=== PATIENT | female | born 1955 ===

== ENCOUNTER 2018-01-04 15:09 | Inpatient (IN) | payer MEDICARE, MEDICAID ==
[2018-01-04 15:10] VITALS: BMI 28.0
[2018-01-04 16:08] LABS: BASO # 0.1 K/uL (0.0-0.2); BASO % 1.1 % (0.0-2.0); EOS # 0.2 K/uL (0.0-0.7); EOS % 1.9 % (0.0-4.0); LYMPH # 2.1 K/uL (1.0-4.3); LYMPH % 24.7 % (20.0-40.0); MEAN CELL VOLUME 87.7 fL (81.0-99.0); MEAN CORPUSCULAR HEMOGLOBIN 30.1 pg (27.0-31.0); MEAN CORPUSCULAR HGB CONC 34.3 g/dL (33.0-37.0); MEAN PLATELET VOLUME 9.5 fL (7.2-11.7); MONO # 0.5 K/uL (0.0-0.8); MONO % 5.6 % (0.0-10.0); NEUT # 5.6 K/uL (1.8-7.0); NEUT % 66.7 % (50.0-75.0); NRBC % 0.1 % (0.0-2.0); RBC 3.98 Mil/uL (3.80-5.20); RED CELL DISTRIBUTION WIDTH 15.2 % (11.5-14.5); WHITE BLOOD COUNT 8.4 K/uL (4.8-10.8)
[2018-01-04 16:29] LABS: ALBUMIN 3.4 g/dL (3.5-5.0); ALT/SGPT 32 U/L (9-52); AST/SGOT 37 U/L (14-36); BLOOD UREA NITROGEN 30 mg/dL (7-17); CALCIUM 9.5 mg/dl (8.6-10.4); GFR AFRICAN-AMERICAN > 60; GFR NON-AFRICAN AMERICAN 51
--- NOTE | 2018-01-04 16:40 | C.PDOC ---
History Of Present Illness 62 year old female presents to the emergency department after being sent by Dr. Orlando for an infected diabetic foot ulcer. The ulcer is located on the ball of her right great toe, starting two months ago but has since been getting smaller. Suddenly it started hurting more. She was seen by Dr. Orlando in his office today. He opened the ulcer resulting in a lot of drainage. Patient denies fever or leg swelling. Time Seen by Provider: 01/04/18 15:28 Chief Complaint (Nursing): Lower Extremity Problem/Injury History Per: Patient History/Exam Limitations: no limitations Onset/Duration Of Symptoms: Other (two months) Current Symptoms Are (Timing): Still Present Past Medical History Reviewed: Historical Data, Nursing Documentation, Vital Signs Vital Signs: Last Vital Signs Temp 98.1 F 01/04/18 15:18 Pulse 93 H 01/04/18 15:18 Resp 18 01/04/18 15:18 BP 168/56 H 01/04/18 17:05 Pulse Ox 99 01/04/18 16:51 - Medical History PMH: Anemia, Anxiety, Asthma, Bronchitis, Colonic Polyps, COPD, Depression, Diabetes, Gastritis, Gall Bladder Disease, HTN, Hypercholesterolemia, Pancreatitis, Pneumonia Denies: Fractures, Osteoporosis, Chronic Kidney Disease Surgical History: Cholecystectomy, Endoscopy, Tonsillectomy - [facility] Procedures CENTRAL VENOUS CATHETER PLACEMENT WITH GUIDANCE (12/19/14) CLOSED ENDOSCOPIC BIOPSY OF LARGE INTESTINE (08/02/14) COLONOSCOPY (08/02/14) ENDOSC POLYPECTOMY OF LG INTEST (03/21/15) ESOPHAGOGASTRODUODENOSCOPY [EGD] W/CLOSED BIOPSY (03/21/15) TETANUS TOXOID ADMINIST (09/21/14) TOE AMPUTATION (01/16/15) Family History: States: No Known Family Hx - Social History Hx Tobacco Use: Yes Hx Alcohol Use: Yes Hx Substance Use: No - Immunization History Hx Tetanus Toxoid Vaccination: (unk) Hx Influenza Vaccination: No Hx Pneumococcal Vaccination: (unk) Review Of Systems Constitutional: Negative for: Fever, Chills, Sweats, Weakness Cardiovascular: Negative for: Edema Musculoskeletal: Positive for: Foot Pain. Negative for: Leg Pain Skin: Positive for: Other (ulcer with drainage) Physical Exam - Physical Exam Appears: Non-toxic, No Acute Distress Skin: Warm, Other (quarter-sized ulceration, open wound over the first metatarsal.) Head: Atraumatic, Normacephalic Eye(s): bilateral: Normal Inspection Extremity: No Swelling, Other (pain while walking, good sensation in the legs) Pulses: Left Dorsalis Pedis: Normal, Right Dorsalis Pedis: Normal Neurological/Psych: Oriented x3, Normal Speech, Normal Cognition ED Course And Treatment - Laboratory Results Result Diagrams: 01/04/18 16:02 01/04/18 16:02 Lab Interpretation: Abnormal (Glucose 418) O2 Sat by Pulse Oximetry: 99 (RA) Pulse Ox Interpretation: Normal Progress Note: Plan: CMP. CBC. Blood Culture. Wound Culture. XR Right Foot 3 Views - Physician Consult Information Time Consulting Physician Contacted: 17:13 Physician Contacted: Cary Bergeron Outcome Of Conversation: Patient to be admitted for treatment of a diabetic foot ulcer with infection. Disposition - Disposition Disposition: HOSPITALIZED Disposition Time: 17:15 Condition: STABLE - POA Present On Arrival: Poor Glycemic Control - Clinical Impression Clinical Impression: Diabetic foot infection - Scribe Statement The provider has reviewed the documentation as recorded by the Scribe (Isacc Lance) Provider Attestation: All medical record entries made by the Scribe were at my direction and personally dictated by me. I have reviewed the chart and agree that the record accurately reflects my personal performance of the history, physical exam, medical decision making, and the department course for this patient. I have also personally directed, reviewed, and agree with the discharge instructions and disposition.
[2018-01-04] MEDS ORDERED: Sodium Chloride 0.9% 1,000 ML IV ONE (16:45)
[2018-01-04] MEDS ORDERED: (Novolin R) Insulin Human Regular 100 units/ml vial IV ONE (16:46)
[2018-01-04] MEDS ORDERED: (Novolin R) Insulin Human Regular 100 units/ml vial ONE (16:50)
[2018-01-04] MEDS ORDERED: Sodium Chloride 0.9% 1,000 ML ONE (16:50)
[2018-01-04] MEDS ORDERED: Oxycodone/Acetaminophen 5/325 mg Tab ONE (16:57)
--- NOTE | 2018-01-04 17:04 | RAD ---
PROCEDURE: Right Foot Radiographs. HISTORY: diabetic foot ulcer, r/o osteo COMPARISON: None. FINDINGS: BONES: No acute fracture or destructive bony lesion identified. However, there are chronic deformities of the middle phalanx right 4th digit and proximal and distal phalanges of the right small digit. Technologists martinez the base of the great toe as the site of possible ulcer. No obvious pattern to suggest osteomyelitis throughout the right foot at this time. MRI is available for follow-up if clinically warranted. Degenerative changes seen throughout the interphalangeal joints as well as the tarsal metatarsal articulations diffusely. Local soft tissues appear thickened at the base of the great toe with flattened area and emphysema where it ulcer has apparently developed. JOINTS: As above. SOFT TISSUES: As above. OTHER FINDINGS: None. IMPRESSION: No acute fracture or definitive radiographic sign of osteomyelitis at this time. Deformities of the 4th and 5th digits are identified as discussed above on a chronic basis.
[2018-01-04 20:26] VITALS: RESP 20
[2018-01-04] MEDS: (Novolog) Insulin Aspart, Recombinant 100 u/ml 10 ml vial SC SCH (21:38)
[2018-01-04] MEDS: (Lantus) Insulin Glargine, Recombinant SC SCH (21:39)
[2018-01-04] MEDS: Vancomycin 750mg/NS 150 ml 150 ML IVPB SCH (22:14)
[2018-01-05] MEDS: Piperacill/Tazo 3.375gm in Dex 3.375 GM/50 ML BAG IVPB SCH ×4 (00:01→17:12)
[2018-01-05] MEDS: (Novolog) Insulin Aspart, Recombinant 100 u/ml 10 ml vial SC SCH ×4 (07:59→22:10)
[2018-01-05] MEDS: Enoxaparin 40 mg Syringe SC SCH (09:04)
[2018-01-05] MEDS: Vancomycin 750mg/NS 150 ml 150 ML IVPB SCH ×2 (11:21→22:06)
[2018-01-05] MEDS: (Lantus) Insulin Glargine, Recombinant SC SCH (22:11)
[2018-01-06] MEDS: Piperacill/Tazo 3.375gm in Dex 3.375 GM/50 ML BAG IVPB SCH ×4 (00:03→17:14)
--- NOTE | 2018-01-06 05:48 | HP ---
HISTORY OF PRESENT ILLNESS: The patient is 62 years old female with history of uncontrolled type 2 diabetes mellitus was referred to emergency room by research greenhouse supervisor due to infected ulcer on the right plantar aspect of the right foot. The patient had some drainage done in Dr. Shane Crandall's office, but due to the cellulitic reaction and continued infection, the patient was referred to emergency room for evaluation and subsequently admitted. The patient admits that she has pain. The patient denied any trauma. Other review of system is negative. ALLERGIES: POSITIVE FOR MORPHINE AND OXYCODONE. SOCIAL HISTORY Positive for smoking. No EtOH or substance abuse. FAMILY HISTORY Not contributory. PAST MEDICAL HISTORY: Uncontrolled type 2 diabetes mellitus, degenerative spine disease, hypertension, hypercholesterolemia, peripheral vascular disease, peripheral neuropathy. PHYSICAL EXAMINATION: GENERAL: The patient is in bed, not in any cardiopulmonary distress at the time of this examination. VITAL SIGNS: Blood pressure 139/61, temperature 97.6, respiratory rate 20 and pulse 60. HEENT: Pupils equal, reactive to light. Normal-appearing mucosa of the conjunctivae, oropharynx and nasal membrane mucosa. NECK: Supple. No JVD. No carotid bruit. No lymph node. No thyromegaly. CHEST AND LUNGS: Bilateral symmetrical expansion. Good air exchange. No rales, no rhonchi. CARDIOVASCULAR SYSTEM: PMI not localized. S1, S2. No additional sounds. ABDOMEN: Normoactive bowel sounds. No tenderness. No organomegaly. No masses. EXTREMITIES: No cyanosis, clubbing, no edema. In the right foot, the patient has acute on top of chronic ulcer of the right foot. REAL ESTATE DEVELOPER: Alert, awake, oriented x3. ____ any neurological deficits. ASSESSMENT: 1. Infected right foot ulcer. 2. Diabetic foot. 3. Type 2 diabetes mellitus, uncontrolled. 4. Peripheral vascular disease. 5. Hypertension. PLAN: Continue current antibiotics. Resume the patient's home medications. Continue current medications and IV antibiotics, both Zosyn and vancomycin. Will put in ID consult also. Cary Bergeron MD
[2018-01-06 07:21] LABS: BASO # 0.1 K/uL (0.0-0.2); EOS # 0.2 K/uL (0.0-0.7); EOS % 2.4 % (0.0-4.0); HEMOGLOBIN 12.8 g/dL (11.0-16.0); LYMPH # 2.1 K/uL (1.0-4.3); LYMPH % 27.1 % (20.0-40.0); MEAN CELL VOLUME 88.1 fL (81.0-99.0); MEAN CORPUSCULAR HEMOGLOBIN 29.8 pg (27.0-31.0); MEAN CORPUSCULAR HGB CONC 33.8 g/dL (33.0-37.0); MEAN PLATELET VOLUME 9.7 fL (7.2-11.7); MONO # 0.4 K/uL (0.0-0.8); NEUT # 4.9 K/uL (1.8-7.0); NEUT % 64.5 % (50.0-75.0); NRBC % 0.1 % (0.0-2.0); RBC 4.28 Mil/uL (3.80-5.20); RED CELL DISTRIBUTION WIDTH 14.9 % (11.5-14.5); WHITE BLOOD COUNT 7.6 K/uL (4.8-10.8)
--- NOTE | 2018-01-06 07:22 | CON ---
PROCEDURE DATE: 01/05/2018 At the request of Dr. Bergeron. This is a 62-year-old female, well known to me for a longstanding ulcer on the plantar aspect of the right foot. The patient was seen two days ago in the office and upon debridement, foul-smelling exudate appeared from the plantar aspect of the first metatarsophalangeal joint. No significant ascending cellulitis was noted; however due to chronic nature of this process and due to the fact that the patient is a well known uncontrolled diabetic and smoker, I suggested the patient be admitted for IV antibiotics. The patient is seen at bedside today, alert and orientated x3. Upon examination of the ulcer, again small amount of purulent exudate foul odor was noted. The wound was dressed and cleansed with peroxide, 4 x 4s, Berenice and tape. Outpatient imaging MRI did not suggest any evidence of osteomyelitis; however, I suspect that imaging maybe suspect. Suggest PICC line. Check sed rate for elevation and bone scan imaging may be helpful in determining whether or not there is infectious agent in the sesamoid apparatus of the first metatarsophalangeal joint over the head or base of the proximal phalanx. Cultures taken in ER are pending. The patient needs IV antibiotics and cessation of tobacco. Robin Arshad DPM
[2018-01-06 07:29] LABS: BLOOD UREA NITROGEN 27 mg/dL (7-17); CALCIUM 9.3 mg/dl (8.6-10.4); GFR AFRICAN-AMERICAN 51; GFR NON-AFRICAN AMERICAN 42
[2018-01-06] MEDS: (Novolog) Insulin Aspart, Recombinant 100 u/ml 10 ml vial SC SCH ×4 (08:35→22:31)
--- NOTE | 2018-01-06 10:10 | PN ---
DATE: She was seen at bedside, alert and oriented x3. No apparent distress. Right plantar first metatarsophalangeal joint ulcer is still producing drainage. The patient will continue with IV antibiotic therapy and imaging to determine osteomyelitis. The patient will require IV antibiotics via PICC line if it is determined that there is an osteomyelitic component in the right foot. Continued IVs for now and subacute or prolonged IV antibiotics. Robin Arshad DPM
[2018-01-06] MEDS: Enoxaparin 40 mg Syringe SC SCH (10:27)
--- NOTE | 2018-01-06 10:53 | CP.PCM.CON ---
History of Present Illness - History of Present Illness History of Present Illness: 62 yo female patient with PMHx of anxiety, Asthma, Bronchitis, Depression, Diabetes, Gastritis, Gall Bladder Disease, HTN, Hypercholesterolemia, Osteoporosis, Pneumoniawas seen at bedside this morning after request for podiatry consultation. Patient presents with superficial ulceration to plantar aspect of Right foot 1st MTPJ. Patient is well known to Dr. Darion LOPEZ who have been treating her with local wound debridement. Patient was sent today to hospital from Dr. Martínez office for cellulitis to right lower extremity. Patient states that he generated 1cc of pus from the wound to right foot today at his office. Patient denies of any N/V/F/C or SOB today Past Patient History - Infectious Disease Hx of Infectious Diseases: None - Past Medical History & Family History Past Medical History?: Yes - Past Social History Smoking Status: Heavy Smoker > 10 Cigarettes Daily - CARDIAC Hx Cardiac Disorders: Yes Hx Hypercholesterolemia: Yes Hx Hypertension: Yes - PULMONARY Hx Chronic Obstructive Pulmonary Disease (COPD): Yes - HEENT Hx HEENT Problems: Yes Hx Glaucoma: Yes (shanae eye, sx L eye) - RENAL Hx Chronic Kidney Disease: No - ENDOCRINE/METABOLIC Hx Diabetes Mellitus Type 2: Yes - HEMATOLOGICAL/ONCOLOGICAL Hx Blood Disorders: Yes Hx Anemia: Yes - INTEGUMENTARY Hx Dermatological Problems: No - MUSCULOSKELETAL/RHEUMATOLOGICAL Hx Musculoskeletal Disorders: No Hx Falls: No Hx Fractures: No Hx Osteoporosis: No - GASTROINTESTINAL Hx Gastrointestinal Disorders: Yes Hx Gall Bladder Disease: Yes Hx Gastritis: Yes Hx Pancreatitis: Yes - GENITOURINARY/GYNECOLOGICAL Hx Genitourinary Disorders: No - PSYCHIATRIC Hx Psychophysiologic Disorder: Yes Hx Anxiety: Yes Hx Depression: Yes Hx Substance Use: No - SURGICAL HISTORY Hx Surgeries: Yes Hx Cholecystectomy: Yes Hx Tonsillectomy: Yes - ANESTHESIA Hx Anesthesia: Yes Hx Anesthesia Reactions: No Hx Malignant Hyperthermia: No Meds Allergies/Adverse Reactions: Allergies Allergy/AdvReac Type Severity Reaction Status Date / Time morphine Allergy RASH Verified 01/04/18 15:26 oxycodone HCl [From Percocet] Allergy RASH Verified 01/04/18 15:26 - Medications Medications: Current Medications Buspirone HCl (Buspar) 15 mg PO BID [facility] Last Admin: 01/06/18 10:34 Dose: 15 mg Cyclobenzaprine HCl (Flexeril) 10 mg PO BID [facility] Last Admin: 01/06/18 10:27 Dose: 10 mg Enoxaparin Sodium (Lovenox) 40 mg SC DAILY [facility] Last Admin: 01/06/18 10:27 Dose: 40 mg Famotidine (Pepcid) 20 mg PO BID [facility] Last Admin: 01/06/18 10:27 Dose: 20 mg Vancomycin HCl (Vancocin 750mg/Ns 150 Ml) 150 mls @ 150 mls/hr IVPB Q12H [facility] PRN Reason: Protocol Stop: 01/09/18 22:01 Last Admin: 01/05/18 22:06 Dose: 150 mls/hr Piperacillin Sod/Tazobactam Sod (Zosyn 3.375 Gm Iv Premix) 3.375 gm in 50 mls @ 100 mls/hr IVPB Q6H [facility] PRN Reason: Protocol Last Admin: 01/06/18 06:04 Dose: 100 mls/hr Insulin Aspart (Novolog) 0 unit SC [facility] PRN Reason: Protocol Last Admin: 01/06/18 08:35 Dose: 2 unit Insulin Glargine (Lantus) 24 unit SC [facility] Last Admin: 01/05/18 22:11 Dose: Not Given Ketorolac Tromethamine (Toradol) 10 mg PO Q6 PRN PRN Reason: Pain, moderate (4-7) Last Admin: 01/05/18 22:05 Dose: 10 mg Lisinopril (Zestril) 10 mg PO DAILY [facility] Last Admin: 01/06/18 10:27 Dose: 10 mg [facility]) [facility] Last Admin: 01/06/18 10:27 Dose: 500 mg Rosuvastatin Calcium (Crestor) 10 mg PO [facility] Last Admin: 01/05/18 22:11 Dose: 10 mg Sertraline HCl (Zoloft) 100 mg PO DAILY [facility] Last Admin: 01/06/18 10:27 Dose: 100 mg Physical Exam - Constitutional Appears: Well, Non-toxic, No Acute Distress - Head Exam Head Exam: ATRAUMATIC - Extremities Exam Additional comments: Right lower extremity exam DERM: Superficial open ulceration to plantar aspect of right 1st MTPJ noted measuring 2cm x 2cm x 0.3cm. Wound base appears healing with granulation tissue. No purulent discharge noted. Mild erythema noted to right foot. No mal- odor noted. VASC: Non-palpable DP and PT noted bilaterally, MEETING/EVENT PLANNER less than 3 seconds to all digits NEURO: Gross sensation diminished ORTHO: No pain on palpation to right foot at the level of the ulceration. Decreased ROM noted to right ankle - Neurological Exam Neurological exam: Alert, Oriented x3 - Psychiatric Exam Psychiatric exam: Normal Affect, Normal Mood - Skin Skin Exam: Normal Color, Warm Results - Vital Signs Recent Vital Signs: Last Vital Signs Temp 98.3 F 01/06/18 07:58 Pulse 64 01/06/18 07:58 Resp 20 01/06/18 07:58 BP 170/72 H 01/06/18 07:58 Pulse Ox 96 01/06/18 07:58 - Labs Result Diagrams: 01/06/18 07:00 01/06/18 07:00 Labs: Laboratory Results - last 24 hr 01/05/18 01/05/18 01/05/18 11:00 16:38 21:28 WBC RBC Hgb Hct MCV MCH MCHC RDW Plt Count MPV Neut % (Auto) Lymph % (Auto) [place] % (Auto) Eos % (Auto) Baso % (Auto) Neut # (Auto) Lymph # (Auto) [place] # (Auto) Eos # (Auto) Baso # (Auto) ESR Sodium Potassium Chloride Carbon Dioxide Anion Gap BUN Creatinine Est GFR ( Amer) Est GFR (Non-Af Amer) POC Glucose (mg/dL) 220 H 177 H 108 Random Glucose Calcium C-Reactive Protein Vancomycin Trough 01/06/18 01/06/18 01/06/18 06:59 07:00 07:00 WBC 7.6 RBC 4.28 Hgb 12.8 Hct 37.7 MCV 88.1 MCH 29.8 MCHC 33.8 RDW 14.9 H Plt Count 243 MPV 9.7 Neut % (Auto) 64.5 Lymph % (Auto) 27.1 [place] % (Auto) 5.0 Eos % (Auto) 2.4 Baso % (Auto) 1.0 Neut # (Auto) 4.9 Lymph # (Auto) 2.1 [place] # (Auto) 0.4 Eos # (Auto) 0.2 Baso # (Auto) 0.1 ESR 97 H Sodium 144 Potassium 4.8 Chloride 106 Carbon Dioxide 29 Anion Gap 13 BUN 27 H Creatinine 1.3 H Est GFR ( Amer) 51 Est GFR (Non-Af Amer) 42 POC Glucose (mg/dL) 189 H Random Glucose 173 H Calcium 9.3 C-Reactive Protein < 5.00 Vancomycin Trough 01/06/18 09:59 WBC RBC Hgb Hct MCV MCH MCHC RDW Plt Count MPV Neut % (Auto) Lymph % (Auto) [place] % (Auto) Eos % (Auto) Baso % (Auto) Neut # (Auto) Lymph # (Auto) [place] # (Auto) Eos # (Auto) Baso # (Auto) ESR Sodium Potassium Chloride Carbon Dioxide Anion Gap BUN Creatinine Est GFR ( Amer) Est GFR (Non-Af Amer) POC Glucose (mg/dL) Random Glucose Calcium C-Reactive Protein Vancomycin Trough 17.6 H Assessment & Plan - Assessment and Plan (Free Text) Assessment: 62 yo female patient presents with right foot ulceration and cellulitis Plan: Patient was seen, evaluated at bedside discussed in detail with Dr. Orlando labs and vitals reviewed Rigth foot cleansed with saline, peroxide, Right foot dressed with Peroxide wet to dry DSD Patient to be weight bearing to heel as tolerated Xray reveals no osteomyelitis, no fracture No plan to take patient to [place] Continue treatment with IV Abx ESR 98 Podiatry will continue following inhouse
[2018-01-06] MEDS: Vancomycin 750mg/NS 150 ml 150 ML IVPB SCH (12:14)
--- NOTE | 2018-01-06 13:41 | CP.PCM.CON ---
History of Present Illness - History of Present Illness History of Present Illness: INFECTIOUS DISEASE CONSULT; HPI; 62-year-old female with past medical history off bronchial asthma, COPD, diabetes mellitus, gastritis, colon polyps, anemia, hypertension, hypercholesterolemia, pancreatitis and history of pneumonia, was admitted from the emergency room as she was sent by her senior net architect for cellulitis and draining 1 cc of pus from the wound right foot today at his office.. Patient states she had a callus developed 2 months ago and she is following with Dr. GARCIA, her senior net architect in the office with local wound repeat debridements weekly. Patient complains of pain on ambulation but denies any fever or chills. Patient denies any nausea vomiting, chest pain or shortness of breath.Today wound cultures reported positive for ESBL Escherichia coli/group B beta- hemolytic strep INFECTIOUS DISEASE CONSULT REQUESTED BY PMD FOR INFECTED DIABETIC FOOT ULCER. PATIENT WAS STARTED ON iv ZOSYN, AND iv VANCOMYCIN ON ADMISSION AFTER APPROPRIATE CULTURES. PATIENT GIVES HISTORY OF AN MRI DONE RECENTLY,BY HER HOT STRIP MILL INSPECTOR, REPORTS OF WHICH ARE UNKNOWN. PMH: Anemia, Anxiety, Asthma, Bronchitis, Colonic Polyps, COPD, Depression, Diabetes, Gastritis, Gall Bladder Disease, HTN, Hypercholesterolemia, Pancreatitis, Pneumonia Denies: Fractures, Osteoporosis, Chronic Kidney Disease Surgical History: Cholecystectomy, Endoscopy, Tonsillectomy - [facility] Procedures CENTRAL VENOUS CATHETER PLACEMENT WITH GUIDANCE (12/19/14) CLOSED ENDOSCOPIC BIOPSY OF LARGE INTESTINE (08/02/14) COLONOSCOPY (08/02/14) ENDOSC POLYPECTOMY OF LG INTEST (03/21/15) ESOPHAGOGASTRODUODENOSCOPY [EGD] W/CLOSED BIOPSY (03/21/15) TETANUS TOXOID ADMINIST (09/21/14) TOE AMPUTATION (01/16/15) Family History: States: No Known Family Hx - Social History Hx Tobacco Use: MORE THAN 10 CIGARETTES A DAY. Hx Alcohol Use: Yes Hx Substance Use: No - Immunization History Hx Tetanus Toxoid Vaccination: (unk) Hx Influenza Vaccination: No Hx Pneumococcal Vaccination: (unk) ALLERGY; MORPHINE, OXYCODONE HYDROCHLORIDE. Review of Systems - Constitutional Constitutional: absent: Chills, Fever - EENT Nose/Mouth/Throat: absent: Dry Mouth, Mouth Lesions - Cardiovascular Cardiovascular: absent: Chest Pain, Leg Edema - Respiratory Respiratory: absent: Cough, Hemoptysis - Gastrointestinal Gastrointestinal: absent: Abdominal Pain, Diarrhea, Nausea, Vomiting - Genitourinary Genitourinary: absent: Change in Urinary Stream, Dysuria, Hematuria, Urinary Hesitance - Neurological Neurological: absent: Dizziness, Frequent Falls, Headaches, Weakness - Psychiatric Psychiatric: absent: Mood Swings, Panic Attacks - Hematologic/Lymphatic Hematologic: As Per HPI. absent: Easy Bruising, Lymphadenopathy Past Patient History - Infectious Disease Hx of Infectious Diseases: None - Past Medical History & Family History Past Medical History?: Yes - Past Social History Smoking Status: Heavy Smoker > 10 Cigarettes Daily - CARDIAC Hx Cardiac Disorders: Yes Hx Hypercholesterolemia: Yes Hx Hypertension: Yes - PULMONARY Hx Chronic Obstructive Pulmonary Disease (COPD): Yes - HEENT Hx HEENT Problems: Yes Hx Glaucoma: Yes (shanae eye, sx L eye) - RENAL Hx Chronic Kidney Disease: No - ENDOCRINE/METABOLIC Hx Diabetes Mellitus Type 2: Yes - HEMATOLOGICAL/ONCOLOGICAL Hx Blood Disorders: Yes Hx Anemia: Yes - INTEGUMENTARY Hx Dermatological Problems: No - MUSCULOSKELETAL/RHEUMATOLOGICAL Hx Musculoskeletal Disorders: No Hx Falls: No Hx Fractures: No Hx Osteoporosis: No - GASTROINTESTINAL Hx Gastrointestinal Disorders: Yes Hx Gall Bladder Disease: Yes Hx Gastritis: Yes Hx Pancreatitis: Yes - GENITOURINARY/GYNECOLOGICAL Hx Genitourinary Disorders: No - PSYCHIATRIC Hx Psychophysiologic Disorder: Yes Hx Anxiety: Yes Hx Depression: Yes Hx Substance Use: No - SURGICAL HISTORY Hx Surgeries: Yes Hx Cholecystectomy: Yes Hx Tonsillectomy: Yes - ANESTHESIA Hx Anesthesia: Yes Hx Anesthesia Reactions: No Hx Malignant Hyperthermia: No Meds Allergies/Adverse Reactions: Allergies Allergy/AdvReac Type Severity Reaction Status Date / Time morphine Allergy RASH Verified 01/04/18 15:26 oxycodone HCl [From Percocet] Allergy RASH Verified 01/04/18 15:26 - Medications Medications: Current Medications Buspirone HCl (Buspar) 15 mg PO BID [facility] Last Admin: 01/06/18 10:34 Dose: 15 mg Cyclobenzaprine HCl (Flexeril) 10 mg PO BID [facility] Last Admin: 01/06/18 10:27 Dose: 10 mg Enoxaparin Sodium (Lovenox) 40 mg SC DAILY [facility] Last Admin: 01/06/18 10:27 Dose: 40 mg Famotidine (Pepcid) 20 mg PO BID [facility] Last Admin: 01/06/18 10:27 Dose: 20 mg Vancomycin HCl (Vancocin 750mg/Ns 150 Ml) 150 mls @ 150 mls/hr IVPB Q12H [facility] PRN Reason: Protocol Stop: 01/09/18 22:01 Last Admin: 01/06/18 12:14 Dose: 150 mls/hr Piperacillin Sod/Tazobactam Sod (Zosyn 3.375 Gm Iv Premix) 3.375 gm in 50 mls @ 100 mls/hr IVPB Q6H [facility] PRN Reason: Protocol Last Admin: 01/06/18 11:41 Dose: 100 mls/hr Insulin Aspart (Novolog) 0 unit SC [facility] PRN Reason: Protocol Last Admin: 01/06/18 12:31 Dose: 4 unit Insulin Glargine (Lantus) 24 unit SC [facility] Last Admin: 01/05/18 22:11 Dose: Not Given Ketorolac Tromethamine (Toradol) 10 mg PO Q6 PRN PRN Reason: Pain, moderate (4-7) Last Admin: 01/05/18 22:05 Dose: 10 mg Lisinopril (Zestril) 10 mg PO DAILY [facility] Last Admin: 01/06/18 10:27 Dose: 10 mg Metformin [facility] ([facility]) [facility] Last Admin: 01/06/18 10:27 Dose: 500 mg Rosuvastatin Calcium (Crestor) 10 mg PO [facility] Last Admin: 01/05/18 22:11 Dose: 10 mg Sertraline HCl (Zoloft) 100 mg PO DAILY [facility] Last Admin: 01/06/18 10:27 Dose: 100 mg Physical Exam - Constitutional Appears: No Acute Distress - Head Exam Head Exam: NORMAL INSPECTION - Eye Exam Eye Exam: EOMI, PERRL - ENT Exam ENT Exam: Normal Oropharynx - Neck Exam Neck exam: Positive for: Normal Inspection - Respiratory Exam Respiratory Exam: Clear to Auscultation Bilateral - Cardiovascular Exam Cardiovascular Exam: REGULAR RHYTHM, +S1 - GI/Abdominal Exam GI & Abdominal Exam: Normal Bowel Sounds, Soft. absent: Tenderness - Extremities Exam Extremities exam: Positive for: pedal edema Additional comments: Superficial open ulceration to plantar aspect of right 1st MTPJ noted measuring 2cm x 2cm x 0.3cm. Wound base appears healing with granulation tissue. No purulent discharge noted. Mild erythema noted to right foot. pedal pulses nonpalpable. Foot appears to be warm. - Neurological Exam Neurological exam: Alert, CN II-XII Intact, Oriented x3, Reflexes Normal - Psychiatric Exam Psychiatric exam: Normal Mood - Skin Skin Exam: Normal Color, Warm Results - Vital Signs Recent Vital Signs: Last Vital Signs Temp 98.3 F 01/06/18 07:58 Pulse 64 01/06/18 07:58 Resp 20 01/06/18 07:58 BP 170/72 H 01/06/18 07:58 Pulse Ox 96 01/06/18 07:58 - Labs Result Diagrams: 01/06/18 07:00 01/06/18 07:00 Labs: Laboratory Results - last 24 hr 01/05/18 01/05/18 01/06/18 16:38 21:28 06:59 WBC RBC Hgb Hct MCV MCH MCHC RDW Plt Count MPV Neut % (Auto) Lymph % (Auto) [place] % (Auto) Eos % (Auto) Baso % (Auto) Neut # (Auto) Lymph # (Auto) [place] # (Auto) Eos # (Auto) Baso # (Auto) ESR Sodium Potassium Chloride Carbon Dioxide Anion Gap BUN Creatinine Est GFR ( Amer) Est GFR (Non-Af Amer) POC Glucose (mg/dL) 177 H 108 189 H Random Glucose Calcium C-Reactive Protein Vancomycin Trough 01/06/18 01/06/18 01/06/18 07:00 07:00 09:59 WBC 7.6 RBC 4.28 Hgb 12.8 Hct 37.7 MCV 88.1 MCH 29.8 MCHC 33.8 RDW 14.9 H Plt Count 243 MPV 9.7 Neut % (Auto) 64.5 Lymph % (Auto) 27.1 [place] % (Auto) 5.0 Eos % (Auto) 2.4 Baso % (Auto) 1.0 Neut # (Auto) 4.9 Lymph # (Auto) 2.1 [place] # (Auto) 0.4 Eos # (Auto) 0.2 Baso # (Auto) 0.1 ESR 97 H Sodium 144 Potassium 4.8 Chloride 106 Carbon Dioxide 29 Anion Gap 13 BUN 27 H Creatinine 1.3 H Est GFR ( Amer) 51 Est GFR (Non-Af Amer) 42 POC Glucose (mg/dL) Random Glucose 173 H Calcium 9.3 C-Reactive Protein < 5.00 Vancomycin Trough 17.6 H 01/06/18 11:14 WBC RBC Hgb Hct MCV MCH MCHC RDW Plt Count MPV Neut % (Auto) Lymph % (Auto) [place] % (Auto) Eos % (Auto) Baso % (Auto) Neut # (Auto) Lymph # (Auto) [place] # (Auto) Eos # (Auto) Baso # (Auto) ESR Sodium Potassium Chloride Carbon Dioxide Anion Gap BUN Creatinine Est GFR ( Amer) Est GFR (Non-Af Amer) POC Glucose (mg/dL) 213 H Random Glucose Calcium C-Reactive Protein Vancomycin Trough Assessment & Plan (1) Diabetic foot infection Status: Acute (2) Cellulitis and abscess of digit Assessment and Plan: s/p incision and drainage WOUND CULTURE +VE ESBL E.COLI /GRP B BETA.HAEMOLYTIC STREPT S- MERREM/ZOSYN DC IV ZOSYN. START IV MERREM 500MG IVPB Q8HRLY 01/06/18 CONTINUE IV VANCOMYCIN, DECREASE DOSE TO 1350 MG IVPB QD DAILY STARTING AM F/U VANCO TROUGH LEVEL PRIOR TO 4TH DOSE CONTACT ISOLATION. WOUNG CARE PER PODIATRY. F/U BONE SCAN/MRI REPORTRT FOOT DONE OPD. Status: Acute (3) Diabetes Assessment and Plan: F/U HGB A1C Status: Acute
--- NOTE | 2018-01-06 13:51 | NM ---
PROCEDURE: Three-phase bone scan HISTORY: RT FOOT PLANTER ULCER R/O Osteomyelitis COMPARISON: 12/21/2014 three-phase bone scan. 01/04/2018 plain film radiographs right foot TECHNIQUE: Following administration of 23.4 miCu of Tc MDP three-phase bone scan attention plantar aspect right foot. FINDINGS: Flow component: Normal and symmetrical flow to the ankles and feet. Blood pool component: Accumulation of radionuclide in the soft tissues of the right foot at the level of the plantar ulcer. Delayed images at 3:00: Focal uptake left ankle. Focal uptake proximal left pretibial region. This appears just below the tibial plateau Other findings: Degenerative changes both knees. IMPRESSION: Findings consistent with cellulitis plantar aspect right foot. No compelling evidence for acute osteomyelitis. Additional benign and/or incidental findings described above.
[2018-01-06] MEDS: Sodium Chloride 0.9% 1,000 ML IV SCH (21:02)
--- NOTE | 2018-01-06 21:50 | PN ---
DATE: 01/06/2018 SUBJECTIVE: The patient is seen today 01/06/2018. She is not in any cardiopulmonary distress. The patient has surgical dressing on the right foot. Wound culture grew both E-coli ESBL positive and beta hemolytic streptococcus. Both are sensitive to Zosyn. ID was consulted. PHYSICAL EXAMINATION: VITAL SIGNS: Blood pressure 150/66, temperature 98.5, respiratory rate 20 and pulse 66. HEENT: Pupils equal, reactive to light. Normal-appearing mucosa of the conjunctivae, oropharynx and nasal membrane mucosa. NECK: Supple. No JVD. No carotid bruit. No lymph node. No thyromegaly. CHEST AND LUNGS: Bilateral symmetrical expansion, good air exchange. No rales, no rhonchi. CARDIOVASCULAR SYSTEM: PMI not localized. S1, S2. No additional sounds. ABDOMEN: Normoactive bowel sounds. No tenderness. No organomegaly. No masses. EXTREMITIES: No cyanosis, no clubbing, no edema. OVERLOCK COLLAR SETTER: Alert, awake, oriented x2. No neurological deficit could be appreciated. ASSESSMENT Infected right foot ulcer, diabetic foot, type 2 diabetes mellitus, diabetic neuropathy, hypertension. PLAN: ID consult and follow recommendations. Continue current IV antibiotics, local wound management as per Podiatry. Discussed the patient's condition with the patient's brother as well as the patient at the bedside. Cary Bergeron MD
[2018-01-06] MEDS: (Lantus) Insulin Glargine, Recombinant SC SCH (22:30)
[2018-01-07] MEDS: Meropenem 500 MG in Sodium Chloride 0.9% 100 ML IVPB SCH ×3 (05:07→21:40)
[2018-01-07] MEDS: (Novolog) Insulin Aspart, Recombinant 100 u/ml 10 ml vial SC SCH ×4 (08:21→21:49)
[2018-01-07] MEDS: Sodium Chloride 0.9% 1,000 ML IV SCH ×2 (08:35→22:00)
[2018-01-07 09:00] LABS: ALB/GLOB RATIO 0.9 (1.0-2.1); ALBUMIN 3.1 g/dL (3.5-5.0); ALT/SGPT 34 U/L (9-52); AST/SGOT 45 U/L (14-36); BLOOD UREA NITROGEN 17 mg/dL (7-17); GFR AFRICAN-AMERICAN > 60; GFR NON-AFRICAN AMERICAN 57
--- NOTE | 2018-01-07 09:25 | CP.PCM.PN ---
Subjective - Date & Time of Evaluation Date of Evaluation: 01/07/18 Time of Evaluation: 09:22 - Subjective Subjective: Podiatry Progress note: Dr. Orlando 62 year old female with extensive PMHx was seen and evaluated at bedside for superficial ulceration to plantar aspect of right foot. Patient is AAOx3 and is in NAD. Appears to be resting comfortably in her bed. Denies of any acute overnight events. Denies of any pain today. Denies F/N/V/C/SOB/CP/headache. No new pedal complains Objective - Vital Signs/Intake and Output Vital Signs (last 24 hours): Temp Pulse Resp BP Pulse Ox 97.8 F 86 20 156/71 H 96 01/07/18 08:23 01/07/18 08:23 01/07/18 08:23 01/07/18 08:23 01/07/18 08:23 Intake and Output: 01/07/18 01/07/18 06:59 18:59 Intake Total 650 Balance 650 - Medications Medications: Current Medications Buspirone HCl (Buspar) 15 mg PO BID [facility] Last Admin: 01/06/18 17:24 Dose: 15 mg Cyclobenzaprine HCl (Flexeril) 10 mg PO BID [facility] Last Admin: 01/06/18 17:12 Dose: 10 mg Enoxaparin Sodium (Lovenox) 40 mg SC DAILY [facility] Last Admin: 01/06/18 10:27 Dose: 40 mg Famotidine (Pepcid) 20 mg PO BID [facility] Last Admin: 01/06/18 17:13 Dose: 20 mg Sodium Chloride (Sodium Chloride 0.9%) 1,000 mls @ 100 mls/hr IV .Q10H [facility] Last Admin: 01/07/18 08:35 Dose: 100 mls/hr Meropenem 500 mg/ Sodium (Chloride) 100 mls @ 100 mls/hr IVPB Q8 [facility] PRN Reason: Protocol Last Admin: 01/07/18 05:07 Dose: 100 mls/hr Vancomycin HCl 1.25 gm/ Sodium (Chloride) 250 mls @ 166.7 mls/hr IVPB Q24H [facility] PRN Reason: Protocol Insulin Aspart (Novolog) 0 unit SC [facility] PRN Reason: Protocol Last Admin: 01/07/18 08:21 Dose: 4 unit Insulin Glargine (Lantus) 24 unit SC [facility] Last Admin: 01/06/18 22:30 Dose: 24 unit Lisinopril (Zestril) 10 mg PO DAILY [facility] Last Admin: 01/06/18 10:27 Dose: 10 mg [facility] ([facility]) [address] [facility] Last Admin: 01/07/18 08:21 Dose: 500 mg Rosuvastatin Calcium (Crestor) 10 mg PO [facility] Last Admin: 01/06/18 22:30 Dose: 10 mg Sertraline HCl (Zoloft) 100 mg PO DAILY [facility] Last Admin: 01/06/18 10:27 Dose: 100 mg - Labs Labs: 01/06/18 07:00 01/07/18 08:07 - Constitutional Appears: Well, Non-toxic, No Acute Distress - Extremities Exam Additional comments: Right lower extremity exam DERM: Superficial open ulceration to plantar aspect of right 1st MTPJ noted measuring 2cm x 2cm x 0.3cm. Wound base appears healing with granulation tissue. No purulent discharge noted. Mild erythema noted to right foot. No mal- odor noted. VASC: Non-palpable DP and PT noted bilaterally, ENGRAVER OPTICAL FRAMES less than 3 seconds to all digits NEURO: Gross sensation diminished ORTHO: No pain on palpation to right foot at the level of the ulceration. Decreased ROM noted to right ankle - Neurological Exam Neurological Exam: Alert, Awake, Oriented x3 - Psychiatric Exam Psychiatric exam: Normal Affect, Normal Mood Assessment and Plan - Assessment and Plan (Free Text) Assessment: 62 yo female patient presents with right foot ulceration and cellulitis Plan: Patient was seen, evaluated at bedside Discussed in detail with Dr. Orlando labs and vitals reviewed Rigth foot cleansed with saline, peroxide, Right foot dressed with Peroxide wet to dry DSD Patient to be weight bearing to heel as tolerated Xray reveals no osteomyelitis, no fracture No plan to take patient to [place] Continue treatment with IV Abx Podiatry will continue following inhouse
[2018-01-07] MEDS: Enoxaparin 40 mg Syringe SC SCH (09:36)
[2018-01-07] MEDS: (Lantus) Insulin Glargine, Recombinant SC SCH (21:39)
--- NOTE | 2018-01-07 23:58 | CP.PCM.PN ---
Subjective - Date & Time of Evaluation Date of Evaluation: 01/07/18 Time of Evaluation: 23:58 - Subjective Subjective: CHIEF COMPLAINTS TODAY : AFEBRILE, OFFERS NO NEW COMPLAINTS seen by podiatry and noted ROS. HEENT : N. Resp : No cough, wheezing ,pleuritic CP ,or hemoptysis Cardio : No anginal CP, PND, orthopnea, palpitation GI : No abd.pain, n/v ,diarrhea or GI bleeding . REHABILITATION AIDE : No headache, vertigo, focal deficit. Musculoskel : No joint swelling , Derm : No rash Psych : Normal affect. Ext : No swelling ,calf pain, superficial ulceration to plantar aspect of right foot PE. Pt. is alert awake in no distress. V.S As noted in the chart Head ,ear nose,throat and eyes : Normal. Neck : Supple with normal carotids. Lungs: Clear air entry. Heart : S1 & S2 normal with S4. No murmur. Abd : Soft non tender with normal bowel sounds. Neuro : Moves all ext. with no localized deficit. Ext : mild edema rt foot, with intact pulses.Non tender calves superficial ulceration to plantar aspect of right foot Derm : No rashes or decubitus ulcer. LABS/RADIOLOGY: creatinine 1.0/BUN 17 improving. BONE SCAN-CONSISTENT WITH CELLULITIS PLANTAR ASPECT NO EVIDENCE OF OSTEOMYELITIS. Objective - Vital Signs/Intake and Output Vital Signs (last 24 hours): Temp Pulse Resp BP Pulse Ox 98.9 F 73 20 166/74 H 100 01/07/18 15:00 01/07/18 15:00 01/07/18 15:00 01/07/18 15:00 01/07/18 15:00 Intake and Output: 01/07/18 01/08/18 18:59 06:59 Intake Total 1300 1160 Balance 1300 1160 - Medications Medications: Current Medications Buspirone HCl (Buspar) 15 mg PO BID [facility] Last Admin: 01/07/18 17:18 Dose: 15 mg Cyclobenzaprine HCl (Flexeril) 10 mg PO BID [facility] Last Admin: 01/07/18 17:19 Dose: 10 mg Enoxaparin Sodium (Lovenox) 40 mg SC DAILY [facility] Last Admin: 01/07/18 09:36 Dose: Not Given Famotidine (Pepcid) 20 mg PO BID [facility] Last Admin: 01/07/18 17:18 Dose: 20 mg Sodium Chloride (Sodium Chloride 0.9%) 1,000 mls @ 100 mls/hr IV .Q10H [facility] Last Admin: 01/07/18 22:00 Dose: Not Given Meropenem 500 mg/ Sodium (Chloride) 100 mls @ 100 mls/hr IVPB Q8 [facility] PRN Reason: Protocol Last Admin: 01/07/18 21:40 Dose: 100 mls/hr Vancomycin HCl 1.25 gm/ Sodium (Chloride) 250 mls @ 166.7 mls/hr IVPB Q24H [facility] PRN Reason: Protocol Last Admin: 01/07/18 10:22 Dose: 166.7 mls/hr Insulin Aspart (Novolog) 0 unit SC ACHS [facility] PRN Reason: Protocol Last Admin: 01/07/18 21:49 Dose: Not Given Insulin Glargine (Lantus) 24 unit SC HS [facility] Last Admin: 01/07/18 21:39 Dose: 24 unit Lisinopril (Zestril) 10 mg PO DAILY [facility] Last Admin: 01/07/18 09:31 Dose: 10 mg Metformin HCl (Glucophage) 500 mg PO BIDPC [facility] Last Admin: 01/07/18 17:18 Dose: 500 mg Rosuvastatin Calcium (Crestor) 10 mg PO HS [facility] Last Admin: 01/07/18 21:39 Dose: 10 mg Sertraline HCl (Zoloft) 100 mg PO DAILY [facility] Last Admin: 01/07/18 09:31 Dose: 100 mg - Labs Labs: 01/06/18 07:00 01/07/18 08:07 Assessment and Plan (1) Diabetic foot infection Status: Acute (2) Cellulitis and abscess of digit Assessment & Plan: WOUND CULTURE +VE ESBL E.COLI /GRP B BETA.HAEMOLYTIC STREPT S- MERREM/ZOSYN on IV MERREM 500MG IVPB Q8HRLY 01/06/18 CONTINUE IV VANCOMYCIN, DECREASE DOSE TO 1250 MG IVPB QD DAILY STARTING 01/07/18 F/U VANCO TROUGH LEVEL PRIOR TO 4TH DOSE F/U RENAL FUNCTIONS CLOSELY. CONTACT ISOLATION. WOUNG CARE PER PODIATRY. F/U BONE SCAN/MRI REPORTRT FOOT DONE OPD. Status: Acute Status: Acute (3) Diabetes Status: Acute
--- NOTE | 2018-01-08 00:18 | PN ---
DATE: 01/07/2018 SUBJECTIVE: The patient is seen today 01/07/2018. She is not in any cardiopulmonary distress, currently on IV antibiotics treating the right foot ulcer. PHYSICAL EXAMINATION: VITAL SIGNS: Blood pressure is 166/74, temperature 98.9, respiratory rate 20 and pulse 70. HEENT: Pupils equal, reactive to light. Normal-appearing mucosa of the conjunctivae, oropharynx and nasal membrane mucosa. NECK: Supple. No JVD. No carotid bruit. No lymph node. No thyromegaly. CHEST AND LUNGS: Bilateral symmetrical expansion. Good air exchange. No rales, no rhonchi. CARDIOVASCULAR SYSTEM: PMI not localized. S1, S2. No additional sounds. ABDOMEN: Normoactive bowel sounds. No tenderness. No organomegaly. No masses. EXTREMITIES: No cyanosis, no clubbing, no edema. Right foot ulcer. RETORT ENGINEER: Alert, awake, oriented x3. No neurological deficit could be appreciated. ASSESSMENT: 1. Infected right foot ulcer with polymicrobial infection. 2. Type 2 diabetes mellitus, uncontrolled. 3. Hypertension. 4. Diabetic neuropathy. PLAN: Continue current medications and follow ID recommendations and follow BUN and creatinine and vancomycin trough. Cary Bergeron MD
[2018-01-08] MEDS: Sodium Chloride 0.9% 1,000 ML IV SCH ×3 (02:30→19:34)
[2018-01-08] MEDS: Meropenem 500 MG in Sodium Chloride 0.9% 100 ML IVPB SCH ×3 (05:51→21:47)
[2018-01-08] MEDS: (Novolog) Insulin Aspart, Recombinant 100 u/ml 10 ml vial SC SCH ×3 (08:25→17:22)
[2018-01-08] MEDS: Enoxaparin 40 mg Syringe SC SCH ×2 (10:04→11:17)
--- NOTE | 2018-01-08 14:57 | CP.PCM.PN ---
Subjective - Date & Time of Evaluation Date of Evaluation: 01/08/18 Time of Evaluation: 14:55 - Subjective Subjective: Podiatry Progress note: Dr. Orlando 62 year old female with extensive PMHx was seen and evaluated at bedside for superficial ulceration to plantar aspect of right foot. Patient is AAOx3 and is in NAD. Appears to be resting comfortably in her bed. Denies of any pain today. Denies of any acute overnight events. Denies F/N/V/C/SOB/CP/headache. No new pedal complains Objective - Vital Signs/Intake and Output Vital Signs (last 24 hours): Temp Pulse Resp BP Pulse Ox 98.5 F 75 20 151/83 H 100 01/08/18 08:18 01/08/18 08:18 01/08/18 08:18 01/08/18 08:18 01/08/18 08:18 Intake and Output: 01/08/18 01/08/18 06:59 18:59 Intake Total 2160 1300 Balance 2160 1300 - Medications Medications: Current Medications Acetaminophen (Tylenol 325mg Tab) 650 mg PO Q6H PRN PRN Reason: Pain, moderate (4-7) Amlodipine Besylate (Norvasc) 5 mg PO DAILY [facility] Last Admin: 01/08/18 10:04 Dose: 5 mg Buspirone HCl (Buspar) 15 mg PO BID [facility] Last Admin: 01/08/18 10:04 Dose: 15 mg Cyclobenzaprine HCl (Flexeril) 10 mg PO BID [facility] Last Admin: 01/08/18 10:04 Dose: 10 mg Enoxaparin Sodium (Lovenox) 40 mg SC DAILY [facility] Last Admin: 01/08/18 11:17 Dose: Not Given Famotidine (Pepcid) 20 mg PO BID [facility] Last Admin: 01/08/18 10:04 Dose: 20 mg Sodium Chloride (Sodium Chloride 0.9%) 1,000 mls @ 100 mls/hr IV .Q10H [facility] Last Admin: 01/08/18 05:50 Dose: 100 mls/hr Meropenem 500 mg/ Sodium (Chloride) 100 mls @ 100 mls/hr IVPB Q8 [facility] PRN Reason: Protocol Last Admin: 01/08/18 14:16 Dose: 100 mls/hr Vancomycin HCl 1.25 gm/ Sodium (Chloride) 250 mls @ 166.7 mls/hr IVPB Q24H [facility] PRN Reason: Protocol Last Admin: 01/08/18 11:16 Dose: 166.7 mls/hr Insulin Aspart (Novolog) 0 unit SC ACHS [facility] PRN Reason: Protocol Last Admin: 01/08/18 11:45 Dose: Not Given Insulin Glargine (Lantus) 24 unit SC HS [facility] Last Admin: 01/07/18 21:39 Dose: 24 unit Insulin Glargine (Lantus) 12 unit SC ACB [facility] Lisinopril (Zestril) 10 mg PO DAILY [facility] Last Admin: 01/08/18 10:04 Dose: 10 mg Metformin HCl (Glucophage) 500 mg PO BIDPC [facility] Last Admin: 01/08/18 08:25 Dose: 500 mg Rosuvastatin Calcium (Crestor) 10 mg PO [facility] Last Admin: 01/07/18 21:39 Dose: 10 mg Sertraline HCl (Zoloft) 100 mg PO DAILY [facility] Last Admin: 01/08/18 10:03 Dose: 100 mg - Labs Labs: 01/06/18 07:00 01/07/18 08:07 - Constitutional Appears: Well, Non-toxic, No Acute Distress - Extremities Exam Additional comments: Right lower extremity exam DERM: Superficial open ulceration to plantar aspect of right 1st MTPJ noted measuring 2cm x 2cm x 0.3cm. Wound base appears healing with granulation tissue. No purulent discharge noted. Mild erythema noted to right foot. No mal- odor noted. VASC: Non-palpable DP and PT noted bilaterally, PHYSICIAN PRACTICE ADMINISTRATOR less than 3 seconds to all digits NEURO: Gross sensation diminished ORTHO: No pain on palpation to right foot at the level of the ulceration. Decreased ROM noted to right ankle - Neurological Exam Neurological Exam: Alert, Awake, Oriented x3 - Psychiatric Exam Psychiatric exam: Normal Affect, Normal Mood Assessment and Plan - Assessment and Plan (Free Text) Assessment: 62 yo female patient presents with right foot ulceration and cellulitis Plan: Patient was seen, evaluated at bedside Discussed in detail with Dr. Orlando labs and vitals reviewed Rigth foot cleansed with saline, peroxide, Right foot dressed with Peroxide wet to dry DSD Patient to be weight bearing to heel as tolerated Xray reveals no osteomyelitis, no fracture No plan to take patient to [place] Continue treatment with IV Abx Podiatry will continue following inhouse
[2018-01-08] MEDS: (Lantus) Insulin Glargine, Recombinant SC SCH (21:47)
--- NOTE | 2018-01-09 00:47 | PN ---
DATE: 01/08/2018 SUBJECTIVE: The patient is seen today, 01/08/2018. She is not in any cardiopulmonary distress. The patient is on IV antibiotics, treating infected right foot ulcer. OBJECTIVE: VITAL SIGNS: Blood pressure 184/77, temperature 98.3, respiratory rate 20, and pulse 97. HEENT: Pupils equal and reactive to light. Normal-appearing mucosa of the conjunctivae, oropharynx, and nasal membrane mucosa. NECK: Supple. No JVD. No carotid bruit. No lymph node. No thyromegaly. CHEST AND LUNGS: Bilateral symmetrical expansion. Good air exchange. No rales, no rhonchi. CARDIOVASCULAR SYSTEM: PMI not localized. S1, S2. No additional sounds. ABDOMEN: Normoactive bowel sounds. No tenderness. No organomegaly. No masses. EXTREMITIES: No cyanosis, no clubbing, no edema. CHEESEMAKER: Alert, awake, oriented x2. No neurological deficit could be appreciated. ASSESSMENT: 1. Infected right foot ulcer. 2. Diabetic foot. 3. Type 2 diabetes mellitus, uncontrolled. 4. Hypertension, uncontrolled. PLAN: We will increase the lisinopril to 10 mg twice a day. We added amlodipine 5 mg. Continue current IV antibiotics and follow ID recommendations. Cary Bergeron MD
[2018-01-09] MEDS: Meropenem 500 MG in Sodium Chloride 0.9% 100 ML IVPB SCH ×2 (05:46→14:25)
[2018-01-09] MEDS ORDERED: (Lantus) Insulin Glargine, Recombinant SC SCH (07:30)
[2018-01-09] MEDS: (Novolog) Insulin Aspart, Recombinant 100 u/ml 10 ml vial SC SCH ×2 (08:01→12:25)
--- NOTE | 2018-01-09 11:58 | CP.PCM.PN ---
Subjective - Date & Time of Evaluation Date of Evaluation: 01/09/18 Time of Evaluation: 11:58 - Subjective Subjective: CHIEF COMPLAINTS TODAY : AFEBRILE, OFFERS NO NEW COMPLAINTS mri rt .foot reported also -ve for OSTEOMYLITIS ROS. HEENT : N. Resp : No cough, wheezing ,pleuritic CP ,or hemoptysis Cardio : No anginal CP, PND, orthopnea, palpitation GI : No abd.pain, n/v ,diarrhea or GI bleeding . PET RESORT CONCIERGE : No headache, vertigo, focal deficit. Musculoskel : No joint swelling , Derm : No rash Psych : Normal affect. Ext : No swelling ,calf pain, superficial ulceration to plantar aspect of right foot PE. Pt. is alert awake in no distress. V.S As noted in the chart Head ,ear nose,throat and eyes : Normal. Neck : Supple with normal carotids. Lungs: Clear air entry. Heart : S1 & S2 normal with S4. No murmur. Abd : Soft non tender with normal bowel sounds. Neuro : Moves all ext. with no localized deficit. Ext : mild edema rt foot, with intact pulses.Non tender calves superficial ulceration to plantar aspect of right foot Derm : No rashes or decubitus ulcer. LABS/RADIOLOGY: creatinine 1.0/BUN 17 improving. BONE SCAN-CONSISTENT WITH CELLULITIS PLANTAR ASPECT NO EVIDENCE OF OSTEOMYELITIS. Objective - Vital Signs/Intake and Output Vital Signs (last 24 hours): Temp Pulse Resp BP Pulse Ox 98.2 F 84 20 175/68 H 99 01/09/18 00:05 01/09/18 00:05 01/09/18 00:05 01/09/18 00:05 01/09/18 00:05 Intake and Output: 01/09/18 01/09/18 06:59 18:59 Intake Total 700 Balance 700 - Medications Medications: Current Medications Acetaminophen (Tylenol 325mg Tab) 650 mg PO Q6H PRN PRN Reason: Pain, moderate (4-7) Last Admin: 01/08/18 21:48 Dose: 650 mg Amlodipine Besylate (Norvasc) 5 mg PO DAILY [facility] Last Admin: 01/09/18 09:46 Dose: 5 mg Buspirone HCl (Buspar) 15 mg PO BID [facility] Last Admin: 01/09/18 09:45 Dose: 15 mg Cyclobenzaprine HCl (Flexeril) 10 mg PO BID [facility] Last Admin: 01/09/18 09:46 Dose: 10 mg Enoxaparin Sodium (Lovenox) 40 mg SC DAILY [facility] Last Admin: 01/08/18 11:17 Dose: Not Given Famotidine (Pepcid) 20 mg PO BID [facility] Last Admin: 01/09/18 09:46 Dose: 20 mg Meropenem 500 mg/ Sodium (Chloride) 100 mls @ 100 mls/hr IVPB Q8 [facility] PRN Reason: Protocol Last Admin: 01/09/18 05:46 Dose: 100 mls/hr Vancomycin HCl 1.25 gm/ Sodium (Chloride) 250 mls @ 166.7 mls/hr IVPB Q24H [facility] PRN Reason: Protocol Last Admin: 01/09/18 09:46 Dose: 166.7 mls/hr Insulin Aspart (Novolog) 0 unit SC ACHS [facility] PRN Reason: Protocol Last Admin: 01/09/18 08:01 Dose: Not Given Insulin Glargine (Lantus) 24 unit SC HS [facility] Last Admin: 01/08/18 21:47 Dose: 24 unit Insulin Glargine (Lantus) 12 unit SC ACB [facility] Last Admin: 01/09/18 08:00 Dose: 12 units Lisinopril (Zestril) 10 mg PO Q12 [facility] Last Admin: 01/09/18 09:46 Dose: 10 mg Metformin HCl (Glucophage) 500 mg PO BIDPC [facility] Last Admin: 01/09/18 08:00 Dose: 500 mg Rosuvastatin Calcium (Crestor) 10 mg PO HS [facility] Last Admin: 01/08/18 21:46 Dose: 10 mg Sertraline HCl (Zoloft) 100 mg PO DAILY [facility] Last Admin: 01/09/18 09:46 Dose: 100 mg - Labs Labs: 01/06/18 07:00 01/07/18 08:07 Assessment and Plan (1) Diabetic foot infection Status: Acute (2) Cellulitis and abscess of digit Assessment & Plan: WOUND CULTURE +VE ESBL E.COLI /GRP B BETA.HAEMOLYTIC STREPT S- MERREM/ZOSYN DC IV MERREM 500MG IVPB Q8HRLY 01/06/18 DC IV VANCOMYCIN. START PO AUGMENTIN 875MG POBID X10 DAYS. PO BACID 1 TAB PO HS X10 DAYS. CASE DISCUSSED WITH LIFE SKILLS TEACHER. MS HELMS PT TO F/U OPD WITH PODIATRY WOUND CARE PER PODIATRY. Status: Acute (3) Diabetes Status: Acute
[2018-01-09] MEDS: Enoxaparin 40 mg Syringe SC SCH (12:21)
[2018-01-09] MEDS ORDERED: Pneumococcal 23-Valent Vaccine IM ONE (13:24)
[2018-01-09 14:20] VITALS: BP 186/83; PULSE 67; TEMP 98.2; O2SAT 99
--- NOTE | 2018-01-09 15:20 | CP.PCM.PN ---
Subjective - Date & Time of Evaluation Date of Evaluation: 01/09/18 Time of Evaluation: 10:16 - Subjective Subjective: Podiatry Progress note: Dr. Orlando 62 year old female was seen and evaluated at bedside for superficial ulceration to plantar aspect of right foot. Patient is AAOx3 and is in NAD. Appears to be resting comfortably in her bed. Denies of any pain today. Denies of any acute overnight events. Denies F/N/V/C/SOB/CP/headache. No new pedal complains Objective - Vital Signs/Intake and Output Vital Signs (last 24 hours): Temp Pulse Resp BP Pulse Ox 98.2 F 67 20 186/83 H 99 01/09/18 08:00 01/09/18 08:00 01/09/18 08:00 01/09/18 08:00 01/09/18 08:00 Intake and Output: 01/09/18 01/09/18 06:59 18:59 Intake Total 700 Balance 700 - Medications Medications: Current Medications Acetaminophen (Tylenol 325mg Tab) 650 mg PO Q6H PRN PRN Reason: Pain, moderate (4-7) Last Admin: 01/08/18 21:48 Dose: 650 mg Amlodipine Besylate (Norvasc) 5 mg PO DAILY [facility] Last Admin: 01/09/18 09:46 Dose: 5 mg Buspirone HCl (Buspar) 15 mg PO BID [facility] Last Admin: 01/09/18 09:45 Dose: 15 mg Cyclobenzaprine HCl (Flexeril) 10 mg PO BID [facility] Last Admin: 01/09/18 09:46 Dose: 10 mg Enoxaparin Sodium (Lovenox) 40 mg SC DAILY [facility] Last Admin: 01/09/18 12:21 Dose: Not Given Famotidine (Pepcid) 20 mg PO BID [facility] Last Admin: 01/09/18 09:46 Dose: 20 mg Meropenem 500 mg/ Sodium (Chloride) 100 mls @ 100 mls/hr IVPB Q8 [facility] PRN Reason: Protocol Last Admin: 01/09/18 14:25 Dose: 100 mls/hr Vancomycin HCl 1.25 gm/ Sodium (Chloride) 250 mls @ 166.7 mls/hr IVPB Q24H [facility] PRN Reason: Protocol Last Admin: 01/09/18 09:46 Dose: 166.7 mls/hr Insulin Aspart (Novolog) 0 unit SC ACHS [facility] PRN Reason: Protocol Last Admin: 01/09/18 12:25 Dose: 4 unit Insulin Glargine (Lantus) 24 unit SC HS [facility] Last Admin: 01/08/18 21:47 Dose: 24 unit Insulin Glargine (Lantus) 12 unit SC ACB [facility] Last Admin: 01/09/18 08:00 Dose: 12 units Lisinopril (Zestril) 10 mg PO Q12 [facility] Last Admin: 01/09/18 09:46 Dose: 10 mg Metformin HCl (Glucophage) 500 mg PO BIDPC [facility] Last Admin: 01/09/18 08:00 Dose: 500 mg Rosuvastatin Calcium (Crestor) 10 mg PO HS [facility] Last Admin: 01/08/18 21:46 Dose: 10 mg Sertraline HCl (Zoloft) 100 mg PO DAILY [facility] Last Admin: 01/09/18 09:46 Dose: 100 mg - Labs Labs: 01/06/18 07:00 01/07/18 08:07 - Constitutional Appears: Well, Non-toxic, No Acute Distress - Head Exam Head Exam: ATRAUMATIC - Extremities Exam Additional comments: Right lower extremity exam DERM: Superficial open ulceration to plantar aspect of right 1st MTPJ noted measuring 2cm x 2cm x 0.3cm. Wound base appears healing with hyperkeratotic tissue. No purulent discharge noted. Mild erythema noted to right foot. No mal- odor noted. 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 Decreased ROM noted to right ankle - Neurological Exam Neurological Exam: Alert, Awake, Oriented x3 - Psychiatric Exam Psychiatric exam: Normal Affect, Normal Mood - Skin Skin Exam: Normal Color, Warm Assessment and Plan - Assessment and Plan (Free Text) Assessment: 62 yo female patient presents with right foot ulceration and cellulitis Plan: Patient was seen, evaluated at bedside Discussed in detail with Dr. Orlando labs and vitals reviewed Rigth foot cleansed with saline, peroxide, Right foot dressed with Peroxide wet to dry DSD Patient to be weight bearing to heel as tolerated Xray reveals no osteomyelitis, no fracture No plan to take patient to [place] Continue treatment with IV Abx Podiatry will continue following inhouse
--- NOTE | 2018-01-09 16:40 | CP.PCM.PN ---
Subjective - Date & Time of Evaluation Date of Evaluation: 01/09/18 Time of Evaluation: 16:40 - Subjective Subjective: Alert and orientedx3, denies any pain, NAD. Objective - Vital Signs/Intake and Output Vital Signs (last 24 hours): Temp Pulse Resp BP Pulse Ox 98.2 F 67 20 186/83 H 99 01/09/18 08:00 01/09/18 08:00 01/09/18 08:00 01/09/18 08:00 01/09/18 08:00 Intake and Output: 01/09/18 01/09/18 06:59 18:59 Intake Total 700 Balance 700 - Medications Medications: Current Medications Acetaminophen (Tylenol 325mg Tab) 650 mg PO Q6H PRN PRN Reason: Pain, moderate (4-7) Last Admin: 01/08/18 21:48 Dose: 650 mg Amlodipine Besylate (Norvasc) 5 mg PO DAILY [facility] Last Admin: 01/09/18 09:46 Dose: 5 mg Buspirone HCl (Buspar) 15 mg PO BID [facility] Last Admin: 01/09/18 09:45 Dose: 15 mg Cyclobenzaprine HCl (Flexeril) 10 mg PO BID [facility] Last Admin: 01/09/18 09:46 Dose: 10 mg Enoxaparin Sodium (Lovenox) 40 mg SC DAILY [facility] Last Admin: 01/09/18 12:21 Dose: Not Given Famotidine (Pepcid) 20 mg PO BID [facility] Last Admin: 01/09/18 09:46 Dose: 20 mg Meropenem 500 mg/ Sodium (Chloride) 100 mls @ 100 mls/hr IVPB Q8 [facility] PRN Reason: Protocol Last Admin: 01/09/18 14:25 Dose: 100 mls/hr Vancomycin HCl 1.25 gm/ Sodium (Chloride) 250 mls @ 166.7 mls/hr IVPB Q24H [facility] PRN Reason: Protocol Last Admin: 01/09/18 09:46 Dose: 166.7 mls/hr Insulin Aspart (Novolog) 0 unit SC ACHS [facility] PRN Reason: Protocol Last Admin: 01/09/18 12:25 Dose: 4 unit Insulin Glargine (Lantus) 24 unit SC HS [facility] Last Admin: 01/08/18 21:47 Dose: 24 unit Insulin Glargine (Lantus) 12 unit SC ACB [facility] Last Admin: 01/09/18 08:00 Dose: 12 units Lisinopril (Zestril) 10 mg PO Q12 [facility] Last Admin: 01/09/18 09:46 Dose: 10 mg Metformin HCl (Glucophage) 500 mg PO BIDPC [facility] Last Admin: 01/09/18 08:00 Dose: 500 mg Rosuvastatin Calcium (Crestor) 10 mg PO HS [facility] Last Admin: 01/08/18 21:46 Dose: 10 mg Sertraline HCl (Zoloft) 100 mg PO DAILY [facility] Last Admin: 01/09/18 09:46 Dose: 100 mg - Labs Labs: 01/06/18 07:00 01/07/18 08:07 Assessment and Plan - Assessment and Plan (Free Text) Assessment: Patient is seen and examined. Alert and orientedx3, right foot wound is dry, denies much pain. No sob or chest pains. Cleared by DR Burnett for discharge home on po augmentin x [address] Bergeron, plan to discharge home today. Advised to follow up with DR Lizama in 1 week.
--- NOTE | 2018-01-10 11:49 | DS ---
REASON FOR ADMISSION: This is a 62-year-old female with history of uncontrolled type 2 diabetes mellitus who was admitted for infected right foot ulcer. COURSE OF HOSPITALIZATION: The patient was admitted to medical floor and she had a podiatry consult and ID consult. The patient was started on IV antibiotics, and the antibiotics were guided by the culture and sensitivity. The patient did well, and today, the wound is completely dry. The patient was discharged to continue her current insulin regimen, and to continue with the antibiotics and to follow up with Podiatry and with primary care physician. FINAL DIAGNOSES: 1. Infected right foot ulcer. 2. Type 2 diabetes mellitus. 3. Diabetic neuropathy. 4. Hypertension. [facility] MD Rubio
== END 2018-01-09 18:49 | disposition home health service (06) | DRG 638 ==
LOC: C.ER 15:09 → C.9E 17:16 → C.3T 18:04
PROVIDERS: ADMIT Internal Medicine; ATTEND Internal Medicine
DX: E11.621 Type 2 diabetes mellitus with foot ulcer (principal); L03.115 Cellulitis of right lower limb; E11.42 Type 2 diabetes mellitus with diabetic polyneuropathy; E11.65 Type 2 diabetes mellitus with hyperglycemia; E11.51 Type 2 diabetes mellitus with diabetic peripheral angiopathy without gangrene; E78.00 Pure hypercholesterolemia, unspecified; F17.200 Nicotine dependence, unspecified, uncomplicated; H40.9 Unspecified glaucoma; I10 Essential (primary) hypertension; J44.9 Chronic obstructive pulmonary disease, unspecified; E11.628 Type 2 diabetes mellitus with other skin complications; L97.519 Non-pressure chronic ulcer of other part of right foot with unspecified severity; M81.0 Age-related osteoporosis without current pathological fracture; Z79.4 Long term (current) use of insulin; Z86.010 Personal history of colon polyps; Z87.01 Personal history of pneumonia (recurrent); Z90.49 Acquired absence of other specified parts of digestive tract

== ENCOUNTER 2018-02-28 10:50 | Inpatient (IN) | payer MEDICARE, MEDICAID ==
[2018-02-28 10:51] VITALS: BMI 28.0
--- NOTE | 2018-02-28 12:13 | C.PDOC ---
History Of Present Illness 62-year-old female, PMHx includes Diabetes, hypertension and hypercholesterolemia, presents to the emergency department with complaints of ulceration to her right toe. Pain is now radiating up to leg, associated with cramping in B/L lower extremities. She notes she has had this for the last 2-3 months. She notes she had admission last month for same complaint. She went to see production crew supervisor yesterday, who notes that the area in not improving and instructed her to come to ED for evaluation. She denies any change in her blood sugar, fever, nausea/vomiting, or change in sensation. Time Seen by Provider: 02/28/18 12:03 Chief Complaint (Nursing): Lower Extremity Problem/Injury History Per: Patient History/Exam Limitations: no limitations Current Symptoms Are (Timing): Still Present Severity: Moderate Past Medical History Reviewed: Historical Data, Nursing Documentation, Vital Signs Vital Signs: Last Vital Signs Temp 98.1 F 03/04/18 08:00 Pulse 69 03/04/18 08:00 Resp 20 03/04/18 08:00 BP 136/80 03/04/18 08:00 Pulse Ox 96 03/04/18 08:00 - Medical History PMH: Anemia, Anxiety, Arthritis, Asthma, Bronchitis, Colonic Polyps, COPD, Depression, Diabetes, Gastritis, Gall Bladder Disease, HTN, Hypercholesterolemia , Pancreatitis, Pneumonia Denies: Fractures, Osteoporosis, Chronic Kidney Disease Surgical History: Cholecystectomy, Endoscopy, Tonsillectomy - [facility] Procedures CENTRAL VENOUS CATHETER PLACEMENT WITH GUIDANCE (12/19/14) CLOSED ENDOSCOPIC BIOPSY OF LARGE INTESTINE (08/02/14) COLONOSCOPY (08/02/14) ENDOSC POLYPECTOMY OF LG INTEST (03/21/15) ESOPHAGOGASTRODUODENOSCOPY [EGD] W/CLOSED BIOPSY (03/21/15) TETANUS TOXOID ADMINIST (09/21/14) TOE AMPUTATION (01/16/15) Family History: States: No Known Family Hx - Social History Hx Tobacco Use: Yes Hx Alcohol Use: No Hx Substance Use: No - Immunization History Hx Tetanus Toxoid Vaccination: (unk) Hx Influenza Vaccination: No Hx Pneumococcal Vaccination: (unk) Review Of Systems Constitutional: Negative for: Fever, Chills Respiratory: Negative for: Shortness of Breath Gastrointestinal: Negative for: Nausea, Vomiting Musculoskeletal: Positive for: Foot Pain Skin: Negative for: Rash Neurological: Negative for: Weakness, Numbness, Headache, Dizziness Physical Exam - Physical Exam Appears: Non-toxic, No Acute Distress Skin: Normal Color, Warm, Dry, No Rash Head: Atraumatic, Normacephalic Eye(s): bilateral: Normal Inspection, PERRL, EOMI Nose: Normal Oral Mucosa: Moist Lips: Normal Appearing Neck: Normal ROM Chest: Symmetrical Cardiovascular: Rhythm Regular Respiratory: Normal Breath Sounds, No Accessory Muscle Use Gastrointestinal/Abdominal: Normal Exam Back: Normal Inspection Extremity: Normal ROM, Capillary Refill (< 2 sec), No Deformity, No Swelling, Other (2 cm callculus with central ulceration to plantar aspect of right first metatarsal.) Pulses: Left Dorsalis Pedis: Normal, Right Dorsalis Pedis: Normal Neurological/Psych: Oriented x3, Normal Speech ED Course And Treatment - Laboratory Results Result Diagrams: 03/04/18 07:09 03/04/18 07:09 O2 Sat by Pulse Oximetry: 100 (RA) Pulse Ox Interpretation: Normal - Other Rad xr foot X-Ray: Viewed By Me, Read By Radiologist Interpretation: Accession No. : [id number]. Patient Name / ID : CYNTHIA MCCAULEY / [id number]. Exam Date : 02/28/2018 13:00:19 ( Approved ). Study Comment : Sex / Age : F / 62Y. Creator : Rosa Ruelas. Dictator : Rosa Ruelas. Home Day Care Provider : Rn Travel : Rosa Nolasco. Approver2 : Report Date : 02/28/2018 13:58:03. My Comment : . Date of service: 02/28/2018. PROCEDURE: Right Foot Radiographs. HISTORY: r/o osteo. COMPARISON: 01/05/2008. FINDINGS: BONES: No fracture seen. No interval cortical destruction or gross osteolysis appreciated. Patient had a plantar ulcer on the prior study at the 1st metatarsal phalangeal joint level. The rudimentary 4th middle phalanx deformity fused 5th middle and distal phalanx this and apparent truncation partial excision of the 5th proximal phalanx (distal aspect). Mild dorsal midfoot cortical hyperostoses. SOFT TISSUES: Normal. OTHER FINDINGS: [id number] metatarsal joint space narrowing -osteoarthrosis. Achilles tendon insertional enthesophyte noted. -superior to this some possible posterior ankle soft tissue swelling or superficial in position also possible. Correlate with focal clinical symptoms. IMPRESSION: No osteomyelitis findings appreciated. No gas-forming cellulitis. Other findings -as above. Progress Note: Case discussed with Dr Bergeron, agrees upon admission. Disposition - Disposition Disposition: HOSPITALIZED Disposition Time: 18:00 Condition: STABLE - Clinical Impression Clinical Impression: Diabetic foot ulcer, Failure of outpatient treatment - Scribe Statement The provider has reviewed the documentation as recorded by the Scribe (Desmond Perez) All medical record entries made by the Scribe were at my direction and personally dictated by me. I have reviewed the chart and agree that the record accurately reflects my personal performance of the history, physical exam, medical decision making, and the department course for this patient. I have also personally directed, reviewed, and agree with the discharge instructions and disposition.
[2018-02-28 13:22] LABS: BASO # 0.1 K/uL (0.0-0.2); BASO % 0.8 % (0.0-2.0); EOS # 0.1 K/uL (0.0-0.7); EOS % 1.7 % (0.0-4.0); HEMOGLOBIN 11.7 g/dL (11.0-16.0); LYMPH # 1.8 K/uL (1.0-4.3); LYMPH % 23.1 % (20.0-40.0); MEAN CELL VOLUME 88.1 fL (81.0-99.0); MEAN CORPUSCULAR HEMOGLOBIN 29.5 pg (27.0-31.0); MEAN CORPUSCULAR HGB CONC 33.5 g/dL (33.0-37.0); MEAN PLATELET VOLUME 10.4 fL (7.2-11.7); MONO # 0.5 K/uL (0.0-0.8); NEUT # 5.3 K/uL (1.8-7.0); NEUT % 68.4 % (50.0-75.0); NRBC % 0.1 % (0.0-2.0); RBC 3.96 Mil/uL (3.80-5.20); RED CELL DISTRIBUTION WIDTH 15.1 % (11.5-14.5); WHITE BLOOD COUNT 7.8 K/uL (4.8-10.8)
[2018-02-28 13:47] LABS: ALB/GLOB RATIO 1.1 (1.0-2.1); ALBUMIN 3.6 g/dL (3.5-5.0); ALT/SGPT 20 U/L (9-52); AST/SGOT 20 U/L (14-36); BLOOD UREA NITROGEN 30 mg/dL (7-17); CALCIUM 9.2 mg/dl (8.6-10.4); GFR AFRICAN-AMERICAN > 60; GFR NON-AFRICAN AMERICAN 51
[2018-02-28] MEDS ORDERED: (Novolin R) Insulin Human Regular 100 units/ml vial IV ONE (13:48)
[2018-02-28] MEDS ORDERED: Piperacillin/Tazobact 3.375 gm 100 ML IV STA (13:48)
[2018-02-28] MEDS ORDERED: Sodium Chloride 0.9% 1,000 ML IV ONE ×2 (13:48→14:55)
--- NOTE | 2018-02-28 13:59 | RAD ---
Date of service: 02/28/2018 PROCEDURE: Right Foot Radiographs. HISTORY: r/o osteo COMPARISON: 01/05/2008 FINDINGS: BONES: No fracture seen. No interval cortical destruction or gross osteolysis appreciated. Patient had a plantar ulcer on the prior study at the 1st metatarsal phalangeal joint level. The rudimentary 4th middle phalanx deformity fused 5th middle and distal phalanx this and apparent truncation partial excision of the 5th proximal phalanx (distal aspect). Mild dorsal midfoot cortical hyperostoses SOFT TISSUES: Normal. OTHER FINDINGS: [id number] metatarsal joint space narrowing -osteoarthrosis Achilles tendon insertional enthesophyte noted. -superior to this some possible posterior ankle soft tissue swelling or superficial in position also possible. Correlate with focal clinical symptoms IMPRESSION: No osteomyelitis findings appreciated No gas-forming cellulitis. Other findings -as above.
[2018-02-28] MEDS ORDERED: (Novolin R) Insulin Human Regular 100 units/ml vial ONE (14:04)
[2018-02-28] MEDS ORDERED: Piperacillin/Tazobact 3.375 gm 100 ML IVPB ONE (14:27)
[2018-02-28 17:46] VITALS: RESP 20
--- NOTE | 2018-02-28 18:08 | CP.PCM.CON ---
History of Present Illness - History of Present Illness History of Present Illness: Podiatry Consult note: Dr. Orlando 62 year old female patient with PMHx of anxiety, Asthma, Bronchitis, Depression , Diabetes, Gastritis, Gall Bladder Disease, HTN, Hypercholesterolemia, Osteoporosis, Pneumoniawas seen at bedside this morning for superficial ulceration to plantar aspect of right foot 1st MTPJ. Patient is well known to Dr. Orlando Molly who have been treating her with local wound debridement. Patient was sent today to hospital from Dr. Martínez office for cellulitis to right lower extremity. Patient denies of any F/N/V/C or SOB today. Reports that she had pain to the right leg which prompted her visit to her md do resident urgent care. Reports that her doctor was concerned for bone infection and asked her to come to the hospital to be admitted for IV abx. Denies of any other pedal complains at this time. Review of Systems - Constitutional Constitutional: As Per HPI Past Patient History - Infectious Disease Hx of Infectious Diseases: None - Past Medical History & Family History Past Medical History?: Yes - Past Social History Smoking Status: Heavy Smoker > 10 Cigarettes Daily - CARDIAC Hx Hypercholesterolemia: Yes Hx Hypertension: Yes - PULMONARY Hx Asthma: Yes Hx Bronchitis: Yes Hx Chronic Obstructive Pulmonary Disease (COPD): Yes Hx Pneumonia: Yes - HEENT Hx HEENT Problems: Yes Hx Glaucoma: Yes - RENAL Hx Chronic Kidney Disease: No - ENDOCRINE/METABOLIC Hx Endocrine Disorders: Yes Hx Diabetes Mellitus Type 2: Yes - HEMATOLOGICAL/ONCOLOGICAL Hx Anemia: Yes - INTEGUMENTARY Hx Dermatological Problems: No - MUSCULOSKELETAL/RHEUMATOLOGICAL Hx Arthritis: Yes Hx Fractures: No Hx Osteoporosis: No - GASTROINTESTINAL Hx Gall Bladder Disease: Yes Hx Gastritis: Yes Hx Pancreatitis: Yes - PSYCHIATRIC Hx Anxiety: Yes Hx Depression: Yes Hx Substance Use: No - SURGICAL HISTORY Hx Cholecystectomy: Yes Hx Tonsillectomy: Yes - ANESTHESIA Hx Anesthesia: Yes Hx Anesthesia Reactions: No Hx Malignant Hyperthermia: No Meds Allergies/Adverse Reactions: Allergies Allergy/AdvReac Type Severity Reaction Status Date / Time morphine Allergy RASH Verified 01/04/18 15:26 oxycodone HCl [From Percocet] Allergy RASH Verified 01/04/18 15:26 Physical Exam - Constitutional Appears: Well, Non-toxic, No Acute Distress - Extremities Exam Additional comments: Right lower extremity exam DERM: 2 superficial open ulceration to plantar aspect of right 1st MTPJ each measuring approx. 0.5 cm x 0.5 cm 0.1 cm; Wound base appears healing with hyperkeratotic tissue. No purulent discharge noted. 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 Decreased ROM noted to right ankle - Neurological Exam Neurological exam: Alert, Oriented x3 - Psychiatric Exam Psychiatric exam: Normal Affect, Normal Mood Results - Vital Signs Recent Vital Signs: Last Vital Signs Temp 97.9 F 02/28/18 17:44 Pulse 68 02/28/18 17:44 Resp 20 02/28/18 17:44 BP 186/69 H 02/28/18 17:44 Pulse Ox 99 02/28/18 17:44 - Labs Result Diagrams: 02/28/18 13:09 02/28/18 13:09 Labs: Laboratory Results - last 24 hr 02/28/18 02/28/18 02/28/18 13:09 13:09 14:44 WBC 7.8 RBC 3.96 Hgb 11.7 Hct 34.9 MCV 88.1 MCH 29.5 MCHC 33.5 RDW 15.1 H Plt Count 202 MPV 10.4 Neut % (Auto) 68.4 Lymph % (Auto) 23.1 Gem % (Auto) 6.0 Eos % (Auto) 1.7 Baso % (Auto) 0.8 Neut # (Auto) 5.3 Lymph # (Auto) 1.8 Gem # (Auto) 0.5 Eos # (Auto) 0.1 Baso # (Auto) 0.1 ESR 95 H Sodium 135 Potassium 5.0 Chloride 101 Carbon Dioxide 25 Anion Gap 14 BUN 30 H Creatinine 1.1 Est GFR ( Amer) > 60 Est GFR (Non-Af Amer) 51 POC Glucose (mg/dL) 383 H Random Glucose 453 H* D Calcium 9.2 Total Bilirubin 0.5 AST 20 ALT 20 Alkaline Phosphatase 99 Total Protein 6.9 Albumin 3.6 Globulin 3.3 Albumin/Globulin Ratio 1.1 Assessment & Plan - Assessment and Plan (Free Text) Assessment: 62 yo female patient presents with right foot ulceration Plan: Patient was seen, evaluated at bedside Discussed in detail with Dr. Orlando labs and vitals reviewed - afebrile, no leukocytosis Right foot cleansed with saline, peroxide and dressed with wet to dry DSD X-ray reveals no osteomyelitis, no fracture Thank you for the podiatry consult and allowing to take part in patient care Podiatry will continue following in house - Date & Time Date: 02/28/18 Time: 13:30
[2018-02-28] MEDS: (Lantus) Insulin Glargine, Recombinant SC SCH (22:18)
[2018-02-28] MEDS: (Novolog) Insulin Aspart, Recombinant 100 u/ml 10 ml vial SC SCH (22:18)
[2018-03-01] MEDS: Albuterol HFA 90 mcg/actuation (8 g) INH PRN ×3 (01:24→13:50)
--- NOTE | 2018-03-01 05:31 | HP ---
HISTORY OF PRESENT ILLNESS: The patient is a 62 years old female with history of multiple medical problems including longstanding uncontrolled type 2 diabetes with diabetic neuropathy. The patient presented with plantar ulcer of the right foot as well as pain on the right leg. The patient was seen by Podiatry on the day prior to admission and referred to emergency room for evaluation. The patient denied to have any trauma. The patient was admitted about two months ago for similar presentation. Blood sugar is not controlled, and the patient is not compliant to medications or insulin regimen. Other review of system also showed cramps of both lower extremities. MEDICATIONS: As per MAR, reviewed. PAST MEDICAL HISTORY: Complicated type 2 diabetes mellitus, diabetic neuropathy, hypertension. SOCIAL HISTORY: Positive for smoking. No EtOH or substance abuse. FAMILY HISTORY: Positive for diabetes. PHYSICAL EXAMINATION: GENERAL: The patient is in bed, not in any cardiopulmonary distress. VITAL SIGNS: With blood pressure of 186/69, temperature of 97.9, respiratory rate 20 and pulse 68. HEENT: Pupils equal, reactive to light. Normal-appearing mucosa of the conjunctivae, oropharynx and nasal membrane mucosa. NECK: Supple. No JVD. No carotid bruit. No lymph node. No thyromegaly. CHEST AND LUNGS: Bilateral symmetrical expansion. Good air exchange. No rales. No rhonchi. CARDIOVASCULAR SYSTEM: PMI not localized. S1, S2. No additional sounds. ABDOMEN: Normoactive bowel sounds. No tenderness. No organomegaly. No masses. EXTREMITIES: No cyanosis, no clubbing, no edema. Right foot has an ulcer in the plantar aspect that was scraped by Podiatry one day prior to admission. The patient also has multiple lesions on the right lower extremity on the anterior tibial area with exquisite pain and hypersensitivity. IS ARCHITECT: Alert, awake, oriented x2. No neurological deficit could be appreciated. ASSESSMENT: 1. Right diabetic foot. 2. Severe diabetic neuropathy. 3. Complicated type 2 diabetes mellitus, uncontrolled. 4. Hypertension. PLAN: We will do Accu-Cheks with insulin coverage. Podiatry consult and follow recommendations. We will start antibiotics after having blood culture and resume the patient's home medications. Cary Bergeron MD
[2018-03-01] MEDS: (Novolog) Insulin Aspart, Recombinant 100 u/ml 10 ml vial SC SCH ×4 (08:24→21:39)
[2018-03-01] MEDS: Enoxaparin 40 mg Syringe SC SCH (09:17)
[2018-03-01] MEDS: Lactobacillus Acidophilus 500 MU Cap PO SCH (09:20)
--- NOTE | 2018-03-01 12:57 | CP.PCM.PN ---
Subjective - Date & Time of Evaluation Date of Evaluation: 03/01/18 Time of Evaluation: 12:54 - Subjective Subjective: Podiatry Progress note: Dr. Orlando 62 year old female patient was seen and evaluated at bedside for right foot 1st MTPJ chronic wound. Patient is AAOx3 and appears in no acute distress. Denies of any pedal complains at the time of the visit. Denies of any overnight F/N/V/C /SOB/CP. Objective - Vital Signs/Intake and Output Vital Signs (last 24 hours): Temp Pulse Resp BP Pulse Ox 98.2 F 57 L 20 105/54 L 99 03/01/18 07:00 03/01/18 07:00 03/01/18 07:00 03/01/18 07:00 03/01/18 07:00 Intake and Output: 03/01/18 03/01/18 06:59 18:59 Intake Total 1050 Balance 1050 - Medications Medications: Current Medications Albuterol (Ventolin Hfa 90 Mcg/Actuation (8 G)) 2 puff INH Q6 PRN Last Admin: 03/01/18 08:10 Dose: 2 puff Amlodipine Besylate (Norvasc) 5 mg PO DAILY [facility] Last Admin: 03/01/18 09:17 Dose: 5 mg Aspirin (Ecotrin) 81 mg PO DAILY [facility] Last Admin: 03/01/18 09:20 Dose: 81 mg Cyclobenzaprine HCl (Flexeril) 10 mg PO BID [facility] Last Admin: 03/01/18 09:17 Dose: 10 mg Enoxaparin Sodium (Lovenox) 40 mg SC DAILY [facility] Last Admin: 03/01/18 09:17 Dose: 40 mg Famotidine (Pepcid) 20 mg PO BID [facility] Last Admin: 03/01/18 09:17 Dose: 20 mg Gabapentin (Neurontin) 200 mg PO Q8H [facility] Last Admin: 03/01/18 05:49 Dose: 200 mg Vancomycin HCl 750 mg/ Sodium (Chloride) 250 mls @ 250 mls/hr IVPB Q12H [facility] PRN Reason: Protocol Last Admin: 03/01/18 11:51 Dose: 250 mls/hr Insulin Aspart (Novolog) 0 unit SC ACHS [facility] PRN Reason: Protocol Last Admin: 03/01/18 12:27 Dose: 2 units Insulin Glargine (Lantus) 24 unit SC HS [facility] Last Admin: 02/28/18 22:18 Dose: 24 units Lactobacillus Acidophilus (Bacid Acidophilus) 1 cap PO DAILY [facility] Last Admin: 03/01/18 09:20 Dose: 1 cap Lisinopril (Zestril) 10 mg PO Q12 [facility] Last Admin: 03/01/18 09:17 Dose: 10 mg Metformin HCl (Glucophage) 1,000 mg PO BIDCC [facility] Last Admin: 03/01/18 08:35 Dose: 1,000 mg Rosuvastatin Calcium (Crestor) 10 mg PO [facility] Sertraline HCl (Zoloft) 100 mg PO DAILY [facility] Last Admin: 03/01/18 09:17 Dose: 100 mg Tramadol HCl (Ultram) 50 mg PO Q6H PRN PRN Reason: Pain, moderate (4-7) Last Admin: 03/01/18 11:50 Dose: 50 mg - Labs Labs: 02/28/18 13:09 02/28/18 13:09 - Constitutional Appears: Well, Non-toxic, No Acute Distress - Extremities Exam Additional comments: Right lower extremity exam DERM: 2 superficial open ulceration to plantar aspect of right 1st MTPJ each measuring approx. 0.5 cm x 0.5 cm 0.1 cm; Wound base appears healing with hyperkeratotic tissue. No purulent discharge noted. no erythema, no edema, no probe to bone, no malodor., no tunneling, no tracking VASC: DP/PT pulses are faintly palpable 1/4 b/l, ASSOCIATE CHEMIST less than 3 seconds to all digits NEURO: Gross sensation diminished ORTHO: No pain on palpation to right foot at the level of the ulceration. Decreased ROM noted to right ankle - Neurological Exam Neurological Exam: Alert, Awake, Oriented x3 - Psychiatric Exam Psychiatric exam: Normal Affect, Normal Mood Assessment and Plan - Assessment and Plan (Free Text) Assessment: 62 yo female patient presents with right foot ulceration Plan: Patient was seen, evaluated at bedside Discussed in detail with Dr. Orlando labs and vitals reviewed - afebrile, no leukocytosis Right foot cleansed with saline, peroxide and dressed with wet to dry DSD X-ray reveals no osteomyelitis, no fracture Podiatry will continue following in house
--- NOTE | 2018-03-01 17:51 | CP.PCM.CON ---
History of Present Illness - History of Present Illness History of Present Illness: INFECTIOUS DISEASE CONSULT; HPI; 62 year old female patient with PMHx of anxiety, Asthma, Bronchitis, Depression , Diabetes, Gastritis, Gall Bladder Disease, HTN, Hypercholesterolemia, Osteoporosis, Pneumonia, who was admitted for superficial ulceration to plantar aspect of right foot 1st MTPJ. Patient was sent to hospital from Dr. Martínez office for cellulitis to right lower extremity. Reports that she had pain to the right leg which prompted her visit to her machine compositor. Reports that her doctor was concerned for bone infection and asked her to come to the hospital to be admitted for IV abx. Denies of any other pedal complains at this time. patient denies any fever or chills. Denies any shortness of breath, chest pain , nausea and vomiting or diarrhea. INFECTIOUS DISEASE CONSULT REQUESTED BY DR EASLEY FOR ,DIABETIC FOOT INFECTION AND CELLULITIS AND NONHEALING RIGHT BIG TOE ULCER. PATIENT PRESENTLY ON iv VANCOMYCIN 750 EVERY 12 HOURLY. WOUND CULTURES TODAY REPORTED GRAM-POSITIVE COCCI. pATIENT ALSO NOTED TO HAVE ELEVATED BLOOD SUGARS ON ADMISSION OF ABOVE 400. PMH: Anemia, Anxiety, Arthritis, Asthma, Bronchitis, Colonic Polyps, COPD, Depression, Diabetes, Gastritis, Gall Bladder Disease, HTN, Hypercholesterolemia , Pancreatitis, Pneumonia Denies: Fractures, Osteoporosis, Chronic Kidney Disease Surgical History: Cholecystectomy, Endoscopy, Tonsillectomy - [facility] Procedures CENTRAL VENOUS CATHETER PLACEMENT WITH GUIDANCE (12/19/14) CLOSED ENDOSCOPIC BIOPSY OF LARGE INTESTINE (08/02/14) COLONOSCOPY (08/02/14) ENDOSC POLYPECTOMY OF LG INTEST (03/21/15) ESOPHAGOGASTRODUODENOSCOPY [EGD] W/CLOSED BIOPSY (03/21/15) TETANUS TOXOID ADMINIST (09/21/14) TOE AMPUTATION (01/16/15) Family History: States: No Known Family Hx - Social History Hx Tobacco Use: Yes Hx Alcohol Use: No Hx Substance Use: No - Immunization History Hx Tetanus Toxoid Vaccination: (unk) Hx Influenza Vaccination: No Hx Pneumococcal Vaccination: (unk) ALLERGY; OXYCODONE HYDROCHLORIDE, MORPHINE. Review of Systems - Constitutional Constitutional: absent: Chills, Fever - EENT Eyes: absent: Change in Vision - Cardiovascular Cardiovascular: absent: Chest Pain, Dyspnea on Exertion, Palpitations - Respiratory Respiratory: absent: Cough - Gastrointestinal Gastrointestinal: absent: Diarrhea, Nausea, Vomiting - Genitourinary Genitourinary: absent: Dysuria - Musculoskeletal Musculoskeletal: As Per HPI, Radiating Pain into Limb - Integumentary Integumentary: Skin Ulcer (RIGHT FOOT BIG TOE ULCER.) - Neurological Neurological: absent: Headaches - Hematologic/Lymphatic Hematologic: As Per HPI. absent: Easy Bleeding, Easy Bruising, Lymphadenopathy Past Patient History - Infectious Disease Hx of Infectious Diseases: None - Past Medical History & Family History Past Medical History?: Yes - Past Social History Smoking Status: Heavy Smoker > 10 Cigarettes Daily - CARDIAC Hx Cardiac Disorders: Yes Hx Hypercholesterolemia: Yes Hx Hypertension: Yes - PULMONARY Hx Respiratory Disorders: Yes Hx Asthma: Yes Hx Bronchitis: Yes Hx Chronic Obstructive Pulmonary Disease (COPD): Yes Hx Pneumonia: Yes - HEENT Hx HEENT Problems: Yes Hx Glaucoma: Yes - RENAL Hx Chronic Kidney Disease: No - ENDOCRINE/METABOLIC Hx Endocrine Disorders: Yes Hx Diabetes Mellitus Type 2: Yes - HEMATOLOGICAL/ONCOLOGICAL Hx Anemia: Yes - INTEGUMENTARY Hx Dermatological Problems: No - MUSCULOSKELETAL/RHEUMATOLOGICAL Hx Arthritis: Yes Hx Falls: Yes Hx Fractures: No Hx Osteoporosis: No - GASTROINTESTINAL Hx Gall Bladder Disease: Yes Hx Gastritis: Yes Hx Pancreatitis: Yes - PSYCHIATRIC Hx Substance Use: No - SURGICAL HISTORY Hx Surgeries: Yes Hx Amputation: Yes Hx Cholecystectomy: Yes Hx Tonsillectomy: Yes - ANESTHESIA Hx Anesthesia: Yes Hx Anesthesia Reactions: No Hx Malignant Hyperthermia: No Has any member of the family had a problem w/ anesthesia?: No Meds Allergies/Adverse Reactions: Allergies Allergy/AdvReac Type Severity Reaction Status Date / Time morphine Allergy RASH Verified 01/04/18 15:26 oxycodone HCl [From Percocet] Allergy RASH Verified 01/04/18 15:26 - Medications Medications: Current Medications Albuterol (Ventolin Hfa 90 Mcg/Actuation (8 G)) 2 puff INH Q6 PRN Last Admin: 03/01/18 13:50 Dose: 2 puff Amlodipine Besylate (Norvasc) 5 mg PO DAILY [facility] Last Admin: 03/01/18 09:17 Dose: 5 mg Aspirin (Ecotrin) 81 mg PO DAILY [facility] Last Admin: 03/01/18 09:20 Dose: 81 mg Cyclobenzaprine HCl (Flexeril) 10 mg PO BID [facility] Last Admin: 03/01/18 17:23 Dose: 10 mg Enoxaparin Sodium (Lovenox) 40 mg SC DAILY [facility] Last Admin: 03/01/18 09:17 Dose: 40 mg Famotidine (Pepcid) 20 mg PO BID [facility] Last Admin: 03/01/18 17:23 Dose: 20 mg Gabapentin (Neurontin) 200 mg PO Q8H [facility] Last Admin: 03/01/18 14:14 Dose: 200 mg Vancomycin HCl 750 mg/ Sodium (Chloride) 250 mls @ 250 mls/hr IVPB Q12H [facility] PRN Reason: Protocol Last Admin: 03/01/18 11:51 Dose: 250 mls/hr Insulin Aspart (Novolog) 0 unit SC [facility] PRN Reason: Protocol Last Admin: 03/01/18 17:10 Dose: 4 units Insulin Glargine (Lantus) 24 unit SC [facility] Last Admin: 02/28/18 22:18 Dose: 24 units Lactobacillus Acidophilus (Bacid Acidophilus) 1 cap PO DAILY [facility] Last Admin: 03/01/18 09:20 Dose: 1 cap Lisinopril (Zestril) 10 mg PO Q12 [facility] Last Admin: 03/01/18 09:17 Dose: 10 mg Metformin HCl (Glucophage) 1,000 mg PO BIDCC [facility] Last Admin: 03/01/18 17:24 Dose: 1,000 mg Rosuvastatin Calcium (Crestor) 10 mg PO [facility] Sertraline HCl (Zoloft) 100 mg PO DAILY [facility] Last Admin: 03/01/18 09:17 Dose: 100 mg Tramadol HCl (Ultram) 50 mg PO Q6H PRN PRN Reason: Pain, moderate (4-7) Last Admin: 03/01/18 11:50 Dose: 50 mg Physical Exam - Constitutional Appears: No Acute Distress - Head Exam Head Exam: NORMAL INSPECTION - Eye Exam Eye Exam: EOMI, PERRL - ENT Exam ENT Exam: Mucous Membranes Moist - Neck Exam Neck exam: Positive for: Normal Inspection - Respiratory Exam Respiratory Exam: Clear to Auscultation Bilateral, NORMAL BREATHING PATTERN - Cardiovascular Exam Cardiovascular Exam: Bradycardia, REGULAR RHYTHM, +S1, +S2 - GI/Abdominal Exam GI & Abdominal Exam: Normal Bowel Sounds, Soft. absent: Hyperactive Bowel Sounds - Extremities Exam Extremities exam: Positive for: pedal edema, pedal pulses present. Negative for : calf tenderness Additional comments: ULCERATION ON THE RIGHT FIRST METATARSAL PHALANGEAL JOINT PLANTAR ASPECT. wOUND WITH GRANULAR BASE. nO MALODOR DISCHARGE NOTED. - Neurological Exam Neurological exam: Alert, CN II-XII Intact, Oriented x3 - Psychiatric Exam Psychiatric exam: Normal Mood - Skin Skin Exam: Dry, Warm Results - Vital Signs Recent Vital Signs: Last Vital Signs Temp 97.6 F 03/01/18 16:00 Pulse 64 03/01/18 16:00 Resp 20 03/01/18 16:00 BP 120/56 L 03/01/18 16:00 Pulse Ox 98 03/01/18 16:00 - Labs Result Diagrams: 02/28/18 13:09 02/28/18 13:09 Labs: Laboratory Results - last 24 hr 02/28/18 03/01/18 03/01/18 21:18 06:19 11:11 POC Glucose (mg/dL) 446 H* 239 H 185 H 03/01/18 16:31 POC Glucose (mg/dL) 240 H Assessment & Plan (1) Diabetic foot ulcer Status: Acute (2) Cellulitis and abscess of digit Status: Acute (3) Uncontrolled diabetes mellitus Status: Acute (4) Diabetic neuropathy associated with type 2 diabetes mellitus Status: Acute - Assessment and Plan (Free Text) Plan: PLAN; PANCULTURES WOUND CULTURE. MRSA SCREEN. 3 PHASE BONE SCAN RIGHT FOOT R/O OM 1ST MTPJ. CONTINUE VANCOMYCIN 750 EVERY 12 HOURLY.03/31/18 ADD IV ROCEPHIN 1 G EVERY 12 HOURLY 04/01/17. F/U CULTURES TO ADJUST ANTIBIOTICS. WOUND CARE PER PODIATRY. WILL FOLLOW ALONG WITH YOU.
--- NOTE | 2018-03-01 20:27 | CON ---
DATE: 03/01/2018 REQUESTING PHYSICIAN: Dr. Bergeron. HISTORY OF PRESENT ILLNESS: This is a 62-year-old diabetic female, well known to me from prior admissions and also in my private practice. The patient was seen this week in my office complaining of ascending pain on the right lower extremity, which she believed was coming from an ulcer on the bottom of her right foot. PHYSICAL EXAMINATION: GENERAL: She is seen this morning, alert and oriented x3 at bedside. EXTREMITIES: The right lower extremity has no significant signs of ascending cellulitis. The ulcer on the plantar aspect of the first metatarsophalangeal joint is present; however, there are no signs of bony extrusion or purulence at the present time. There is, however, an elevated sed rate of 95, which to me indicates that potentially there is an osteomyelitic component of either the medial or lateral sesamoid apparatus. ASSESSMENT AND PLAN: I explained to the patient potential need for prolonged IV antibiotics via a PICC line in a subacute facility. The patient is upset about this fact; however, no surgical intervention is planned for this patient at this time. I spoke to Dr. Bergeron concerning the clinical presentation. He understands and will do some imaging studies via Ceretec and MRIs to determine the status of the osseous structures in this area. Robin Arshad DPM
[2018-03-01] MEDS: (Lantus) Insulin Glargine, Recombinant SC SCH (21:41)
[2018-03-02] MEDS: (Novolog) Insulin Aspart, Recombinant 100 u/ml 10 ml vial SC SCH ×3 (08:28→18:14)
[2018-03-02] MEDS: Enoxaparin 40 mg Syringe SC SCH (09:29)
[2018-03-02] MEDS: Lactobacillus Acidophilus 500 MU Cap PO SCH (10:33)
--- NOTE | 2018-03-02 13:34 | CP.PCM.PN ---
<Nancy Mackenzie P - Last Filed: 03/02/18 13:34> Subjective - Date & Time of Evaluation Date of Evaluation: 03/02/18 Time of Evaluation: 13:34 Objective - Vital Signs/Intake and Output Vital Signs (last 24 hours): Temp Pulse Resp BP Pulse Ox 97.3 F L 65 20 136/62 97 03/02/18 07:49 03/02/18 07:49 03/02/18 07:49 03/02/18 07:49 03/02/18 07:49 Intake and Output: 03/02/18 03/02/18 06:59 18:59 Intake Total 250 Balance 250 - Medications Medications: Current Medications Albuterol (Ventolin Hfa 90 Mcg/Actuation (8 G)) 2 puff INH Q6 PRN Last Admin: 03/01/18 13:50 Dose: 2 puff Amlodipine Besylate (Norvasc) 5 mg PO DAILY [facility] Last Admin: 03/02/18 09:28 Dose: 5 mg Aspirin (Ecotrin) 81 mg PO DAILY [facility] Last Admin: 03/02/18 10:33 Dose: 81 mg Cyclobenzaprine HCl (Flexeril) 10 mg PO BID [facility] Last Admin: 03/02/18 09:29 Dose: 10 mg Enoxaparin Sodium (Lovenox) 40 mg SC DAILY [facility] Last Admin: 03/02/18 09:29 Dose: 40 mg Famotidine (Pepcid) 20 mg PO BID [facility] Last Admin: 03/02/18 09:28 Dose: 20 mg Gabapentin (Neurontin) 200 mg PO Q8H [facility] Last Admin: 03/02/18 06:24 Dose: 200 mg Ceftriaxone Sodium 1 gm/ (Sodium Chloride) 100 mls @ 100 mls/hr IVPB Q12H [facility] PRN Reason: Protocol Last Admin: 03/02/18 03:24 Dose: 100 mls/hr Insulin Aspart (Novolog) 0 unit SC ACHS [facility] PRN Reason: Protocol Last Admin: 03/02/18 12:32 Dose: 6 units Insulin Glargine (Lantus) 24 unit SC HS [facility] Last Admin: 03/01/18 21:41 Dose: 24 units Lactobacillus Acidophilus (Bacid Acidophilus) 1 cap PO DAILY [facility] Last Admin: 03/02/18 10:33 Dose: 1 cap Lisinopril (Zestril) 10 mg PO Q12 [facility] Last Admin: 03/02/18 09:28 Dose: 10 mg Metformin HCl (Glucophage) 1,000 mg PO BIDCC [facility] Last Admin: 03/02/18 08:38 Dose: 1,000 mg Rosuvastatin Calcium (Crestor) 10 mg PO HS [facility] Last Admin: 03/01/18 21:39 Dose: 10 mg Sertraline HCl (Zoloft) 100 mg PO DAILY [facility] Last Admin: 03/02/18 09:28 Dose: 100 mg Tramadol HCl (Ultram) 50 mg PO Q6H PRN PRN Reason: Pain, moderate (4-7) Last Admin: 03/02/18 12:33 Dose: 50 mg - Labs Labs: 02/28/18 13:09 02/28/18 13:09 <Agustin Fiore - Last Filed: 03/02/18 19:51> Subjective - Subjective Subjective: . Objective - Vital Signs/Intake and Output Vital Signs (last 24 hours): Temp Pulse Resp BP Pulse Ox 98.4 F 67 20 119/57 L 97 03/02/18 15:51 03/02/18 15:51 03/02/18 15:51 03/02/18 15:51 03/02/18 15:51 - Medications Medications: Current Medications Albuterol (Ventolin Hfa 90 Mcg/Actuation (8 G)) 2 puff INH Q6 PRN Last Admin: 03/01/18 13:50 Dose: 2 puff Amlodipine Besylate (Norvasc) 5 mg PO DAILY [facility] Last Admin: 03/02/18 09:28 Dose: 5 mg Aspirin (Ecotrin) 81 mg PO DAILY [facility] Last Admin: 03/02/18 10:33 Dose: 81 mg Cyclobenzaprine HCl (Flexeril) 10 mg PO BID [facility] Last Admin: 03/02/18 18:13 Dose: 10 mg Enoxaparin Sodium (Lovenox) 40 mg SC DAILY [facility] Last Admin: 03/02/18 09:29 Dose: 40 mg Famotidine (Pepcid) 20 mg PO BID [facility] Last Admin: 03/02/18 18:13 Dose: 20 mg Gabapentin (Neurontin) 200 mg PO Q8H [facility] Last Admin: 03/02/18 14:08 Dose: 200 mg Ceftriaxone Sodium 1 gm/ (Sodium Chloride) 100 mls @ 100 mls/hr IVPB Q12H [facility] PRN Reason: Protocol Last Admin: 03/02/18 14:30 Dose: 100 mls/hr Vancomycin HCl (Vancocin 750mg/Ns 150 Ml) 150 mls @ 100 mls/hr IVPB Q12H [facility] PRN Reason: Protocol Last Admin: 03/02/18 18:33 Dose: 100 mls/hr Insulin Aspart (Novolog) 0 unit SC ACHS [facility] PRN Reason: Protocol Last Admin: 03/02/18 18:14 Dose: 2 units Insulin Aspart (Novolog) 2 unit SC AC [facility] Insulin Glargine (Lantus) 31 unit SC HS [facility] Lactobacillus Acidophilus (Bacid Acidophilus) 1 cap PO DAILY [facility] Last Admin: 03/02/18 10:33 Dose: 1 cap Lisinopril (Zestril) 10 mg PO Q12 [facility] Last Admin: 03/02/18 09:28 Dose: 10 mg Metformin HCl (Glucophage) 1,000 mg PO BIDCC [facility] Last Admin: 03/02/18 17:55 Dose: 1,000 mg Rosuvastatin Calcium (Crestor) 10 mg PO HS [facility] Last Admin: 03/01/18 21:39 Dose: 10 mg Sertraline HCl (Zoloft) 100 mg PO DAILY [facility] Last Admin: 03/02/18 09:28 Dose: 100 mg Tramadol HCl (Ultram) 50 mg PO Q6H PRN PRN Reason: Pain, moderate (4-7) Last Admin: 03/02/18 18:33 Dose: 50 mg - Labs Labs: 02/28/18 13:09 02/28/18 13:09 - Constitutional Appears: Well, Non-toxic - Head Exam Head Exam: ATRAUMATIC, NORMAL INSPECTION, NORMOCEPHALIC - Eye Exam Eye Exam: EOMI, Normal appearance, PERRL Pupil Exam: NORMAL ACCOMODATION, PERRL - ENT Exam ENT Exam: Mucous Membranes Moist, Normal Exam - Neck Exam Neck Exam: Normal Inspection - Respiratory Exam Respiratory Exam: Rales - Cardiovascular Exam Cardiovascular Exam: Murmur - GI/Abdominal Exam GI & Abdominal Exam: Soft, Normal Bowel Sounds - Extremities Exam Additional comments: See Below - Neurological Exam Neurological Exam: CN II-XII Intact (See Full Exam ) Attending/Attestation - Attestation I have personally seen and examined this patient.: Yes I have fully participated in the care of the patient.: Yes I have reviewed all pertinent clinical information, including history, physical exam and plan: Yes Notes (Text): 03/02/18 19:[address] Bergeron Patient was seen and examined at 6:00 PM. 62 year old female who was admitted for superficial ulceration of the plantar aspect of the Right Foot First MTP. Wound culture shows S. aureus. Bone Scan 08/08 showed evidence of cellulitis but without osteomyelitis. Currently upon FULL ROS: Bilateral Leg pain that is a soreness to squeezing type of pain that involves the entire feet to legs Is not that hungry Moving her bowels normally NO chest pain NO SOB (+) Cough that is occasionally productive of white sputum for past few days NO abdominal pain NO n/v/d/c NO burning pain with urination NO dysphagia/odynophagia NO new changes in visioin NO new changes in hearing NO headache Exam: General: AAOX3, NAD HEENT: NCA, EOMI, PERRLA, NO cervical/supraclavicular/submandibular lymphadenopathy, NO pharyngeal erythema/exudate, Nasal Turbinates are nonerythematous/nonedematous, Oral Mucosa is moist Cardio: NS1 and NS2, Holosystolic Murmur heard in all of the auscultatory galvez Resp: Bilateral Lung Base Inspiratory Crackles GI: BSx4, Soft, NT, NO HSM, NO guarding/rebound tenderness Ext: Pulses are strong and equal in bilateral UE, Pulses are palpable in the bilateral LE but they are weaker than UE, Capillary Refill is 2 seconds, NO edema, Right Big Toe pedal surface base there is a dry callous roughly 2 cm in diameter with no other evidence of cellulitis Neuro: CN II through XII are grossly intact 1). Right First Toe #1 MTP Pedal Surface Diabetic Dry Ulcer Cellulitis Bone Scan 03/02/18 shows cellulitis and NO osteomyelitis Wound Culture 02/28/18 shows S. aureus Ceftriaxone 1 gm IV Q12H Vancomycin 750 mg IV Q12H (6 AM and 6 PM) F/U Vancomycin Trough 03/04/18 at 5:30 AM F/U Blood Culture ID Dr. Franklin Burnett Podiatry Team is also following 2). Hx DM 2 Aspart ISS Lantus increased to 31 units SC HS starting 03/02/18 Aspart 2 units SC AC Meals starting 03/03/18 Metformin 1,000 mg PO 2x/day F/U HgBA1C F/U TSH F/U T4 3). HTN Norvasc 5 mg PO 1x/day Zestril 10 mg PO Q12H 4). HLD Crestor 10 mg PO HS 5). Depression/Anxiety Zoloft 100 mg PO 1x/day 6). Asthma Ventolin 2 puffs INH Q6H PRN SOB/Wheezing 7). Diabetic Neuropathy Gabapentin 200 mg PO Q8H 8). Complaints of Cough with Bilateral Lower Lung Base Inspiratory Crackles F/U CXR PA/Lateral She is a current smoker and has been for a number of years 9). Prophylaxis ASA 81 mg PO 1x/day Cyclobenzaprin 10 mg PO 2x/day Lovenox 40 mg SC 1x/day Pepcid 20 mg PO 2x/day Lactobacillus 1 cap PO 1x/day Tramadol 50 mg PO Q6H PRN Pain PT Evaluation and Treat Glucerna 3x/day to make sure that patient gets the daily required nutrtion despite the decreased appetite
--- NOTE | 2018-03-02 14:59 | NM ---
Date of service: 03/02/2018 PROCEDURE: Three-phase Bone Scan HISTORY: RT BIG TOE ULCER COMPARISON: 01/06/2018 three-phase bone scan lower extremities TECHNIQUE: Following administration of 21.3 miCu of Tc MDP multiplanar whole body images were obtained. FINDINGS: Flow component: Increased flow to the right lower extremity including ankle and foot. Blood pool component: Increased accumulation of radionuclide right ankle and foot compared to left. This is particularly prominent about the medial aspect of the right foot at the level of the 1st digit. Delayed images at 3:00: Retention of radionuclide within the soft tissues without focal osseous abnormality. Other findings: Persistent focal left pretibial region and left tarsal region uptake IMPRESSION: Findings consistent with cellulitis without evidence of acute osteomyelitis. Similar findings identified on the prior three-phase bone scan 01/06/2018
--- NOTE | 2018-03-02 16:17 | CP.PCM.PN ---
Subjective - Date & Time of Evaluation Date of Evaluation: 03/02/18 Time of Evaluation: 16:00 - Subjective Subjective: Podiatry Progress note: Dr. Orlando 62 year old female patient was seen and evaluated at bedside for right foot 1st MTPJ chronic wound. Patient is AAOx3 and appears in no acute distress. Denies of any pedal complains at the time of the visit. Denies of any overnight F/N/V/C /SOB/CP. Objective - Vital Signs/Intake and Output Vital Signs (last 24 hours): Temp Pulse Resp BP Pulse Ox 98.4 F 67 20 119/57 L 97 03/02/18 15:51 03/02/18 15:51 03/02/18 15:51 03/02/18 15:51 03/02/18 15:51 Intake and Output: 03/02/18 03/02/18 06:59 18:59 Intake Total 250 Balance 250 - Medications Medications: Current Medications Albuterol (Ventolin Hfa 90 Mcg/Actuation (8 G)) 2 puff INH Q6 PRN Last Admin: 03/01/18 13:50 Dose: 2 puff Amlodipine Besylate (Norvasc) 5 mg PO DAILY [facility] Last Admin: 03/02/18 09:28 Dose: 5 mg Aspirin (Ecotrin) 81 mg PO DAILY [facility] Last Admin: 03/02/18 10:33 Dose: 81 mg Cyclobenzaprine HCl (Flexeril) 10 mg PO BID [facility] Last Admin: 03/02/18 09:29 Dose: 10 mg Enoxaparin Sodium (Lovenox) 40 mg SC DAILY [facility] Last Admin: 03/02/18 09:29 Dose: 40 mg Famotidine (Pepcid) 20 mg PO BID [facility] Last Admin: 03/02/18 09:28 Dose: 20 mg Gabapentin (Neurontin) 200 mg PO Q8H [facility] Last Admin: 03/02/18 14:08 Dose: 200 mg Ceftriaxone Sodium 1 gm/ (Sodium Chloride) 100 mls @ 100 mls/hr IVPB Q12H [facility] PRN Reason: Protocol Last Admin: 03/02/18 14:30 Dose: 100 mls/hr Insulin Aspart (Novolog) 0 unit SC ACHS [facility] PRN Reason: Protocol Last Admin: 03/02/18 12:32 Dose: 6 units Insulin Glargine (Lantus) 24 unit SC [facility] Last Admin: 03/01/18 21:41 Dose: 24 units Lactobacillus Acidophilus (Bacid Acidophilus) 1 cap PO DAILY [facility] Last Admin: 03/02/18 10:33 Dose: 1 cap Lisinopril (Zestril) 10 mg PO Q12 [facility] Last Admin: 03/02/18 09:28 Dose: 10 mg Metformin HCl (Glucophage) 1,000 mg PO BIDCC [facility] Last Admin: 03/02/18 08:38 Dose: 1,000 mg Rosuvastatin Calcium (Crestor) 10 mg PO HS [facility] Last Admin: 03/01/18 21:39 Dose: 10 mg Sertraline HCl (Zoloft) 100 mg PO DAILY [facility] Last Admin: 03/02/18 09:28 Dose: 100 mg Tramadol HCl (Ultram) 50 mg PO Q6H PRN PRN Reason: Pain, moderate (4-7) Last Admin: 03/02/18 12:33 Dose: 50 mg - Labs Labs: 02/28/18 13:09 02/28/18 13:09 - Constitutional Appears: Well, Non-toxic, No Acute Distress - Extremities Exam Additional comments: Right lower extremity exam DERM: 2 superficial open ulceration to plantar aspect of right 1st MTPJ each measuring approx. 0.5 cm x 0.5 cm 0.1 cm; Wound base appears healing with hyperkeratotic tissue. No purulent discharge noted. no erythema, no edema, no probe to bone, no malodor., no tunneling, no tracking VASC: DP/PT pulses are faintly palpable 1/4 b/l, [employer] less than 3 seconds to all digits NEURO: Gross sensation diminished ORTHO: No pain on palpation to right foot at the level of the ulceration. Decreased ROM noted to right ankle - Neurological Exam Neurological Exam: Alert, Awake, Oriented x3 - Psychiatric Exam Psychiatric exam: Normal Affect, Normal Mood Assessment and Plan - Assessment and Plan (Free Text) Assessment: 62 yo female patient presents with right foot ulceration Plan: Patient was seen, evaluated at bedside Discussed in detail with Dr. Orlando labs and vitals reviewed - afebrile, no leukocytosis -ESR 95 Right foot cleansed with saline, peroxide and dressed with wet to dry DSD X-ray reveals no osteomyelitis, no fracture 3 phase bone scan: Cellulitis with no acute signs of OM Podiatry will continue following in house
[2018-03-02] MEDS: Vancomycin 750mg/NS 150 ml 150 ML IVPB SCH (18:33)
--- NOTE | 2018-03-02 19:39 | CP.PCM.PN ---
Subjective - Date & Time of Evaluation Date of Evaluation: 03/02/18 Time of Evaluation: 19:39 - Subjective Subjective: CHIEF COMPLAINTS TODAY : AFEBRILE, C/O PAIN RT CALF/LEG 3PHASE BONE SCAN -VE OSTEOMYLITIS/ +VE CELLULITIS ROS. HEENT : N. Resp : No cough, wheezing ,pleuritic CP ,or hemoptysis Cardio : No anginal CP, PND, orthopnea, palpitation GI : No abd.pain, n/v ,diarrhea or GI bleeding . [employer] : No headache, vertigo, focal deficit. Musculoskel : No joint swelling , Derm : No rash Psych : Normal affect. Ext : No swelling ,calf pain, superficial ulceration to plantar aspect of right foot PE. Pt. is alert awake in no distress. V.S As noted in the chart Head ,ear nose,throat and eyes : Normal. Neck : Supple with normal carotids. Lungs: Clear air entry. Heart : S1 & S2 normal with S4. No murmur. Abd : Soft non tender with normal bowel sounds. Neuro : Moves all ext. with no localized deficit. Ext : mild edema rt foot, with intact pulses.Non tender calves superficial ulceration to plantar aspect of right foot 1ST MTP-DRY WOUND Derm : No rashes or decubitus ulcer. LABS/RADIOLOGY: WOUND CULTURE +VE STAPH AUREUS 02/28/18 BLOOD CULTURE -VE GROWTH. ESR 95 BONE SCAN-CONSISTENT WITH CELLULITIS PLANTAR ASPECT NO EVIDENCE OF OSTEOMYELITIS. Objective - Vital Signs/Intake and Output Vital Signs (last 24 hours): Temp Pulse Resp BP Pulse Ox 98.4 F 67 20 119/57 L 97 03/02/18 15:51 03/02/18 15:51 03/02/18 15:51 03/02/18 15:51 03/02/18 15:51 - Medications Medications: Current Medications Albuterol (Ventolin Hfa 90 Mcg/Actuation (8 G)) 2 puff INH Q6 PRN Last Admin: 03/01/18 13:50 Dose: 2 puff Amlodipine Besylate (Norvasc) 5 mg PO DAILY [facility] Last Admin: 03/02/18 09:28 Dose: 5 mg Aspirin (Ecotrin) 81 mg PO DAILY [facility] Last Admin: 03/02/18 10:33 Dose: 81 mg Cyclobenzaprine HCl (Flexeril) 10 mg PO BID [facility] Last Admin: 03/02/18 18:13 Dose: 10 mg Enoxaparin Sodium (Lovenox) 40 mg SC DAILY [facility] Last Admin: 03/02/18 09:29 Dose: 40 mg Famotidine (Pepcid) 20 mg PO BID [facility] Last Admin: 03/02/18 18:13 Dose: 20 mg Gabapentin (Neurontin) 200 mg PO Q8H [facility] Last Admin: 03/02/18 14:08 Dose: 200 mg Ceftriaxone Sodium 1 gm/ (Sodium Chloride) 100 mls @ 100 mls/hr IVPB Q12H [facility] PRN Reason: Protocol Last Admin: 03/02/18 14:30 Dose: 100 mls/hr Vancomycin HCl (Vancocin 750mg/Ns 150 Ml) 150 mls @ 100 mls/hr IVPB Q12H [facility] PRN Reason: Protocol Last Admin: 03/02/18 18:33 Dose: 100 mls/hr Insulin Aspart (Novolog) 0 unit SC ACHS [facility] PRN Reason: Protocol Last Admin: 03/02/18 18:14 Dose: 2 units Insulin Aspart (Novolog) 2 unit SC AC [facility] Insulin Glargine (Lantus) 31 unit SC HS [facility] Lactobacillus Acidophilus (Bacid Acidophilus) 1 cap PO DAILY [facility] Last Admin: 03/02/18 10:33 Dose: 1 cap Lisinopril (Zestril) 10 mg PO Q12 [facility] Last Admin: 03/02/18 09:28 Dose: 10 mg [facility] Last Admin: 03/02/18 17:55 Dose: 1,000 mg Rosuvastatin Calcium (Crestor) 10 mg PO HS [facility] Last Admin: 03/01/18 21:39 Dose: 10 mg Sertraline HCl (Zoloft) 100 mg PO DAILY [facility] Last Admin: 03/02/18 09:28 Dose: 100 mg Tramadol HCl (Ultram) 50 mg PO Q6H PRN PRN Reason: Pain, moderate (4-7) Last Admin: 03/02/18 18:33 Dose: 50 mg - Labs Labs: 02/28/18 13:09 02/28/18 13:09 Assessment and Plan (1) Diabetic foot ulcer Status: Acute (2) Cellulitis and abscess of digit Assessment & Plan: CONTINUE VANCOMYCIN 750 EVERY 12 HOURLY.03/02/18 ON IV ROCEPHIN 1 G EVERY 12 HOURLY 03/01/17. F/U IV VANCO TROUGH LEVEL PRIOR TO 4TH DOSE. KEEP BETWEEN 10-15. F/U CULTURES TO ADJUST ANTIBIOTICS. WOUND CARE PER PODIATRY. Status: Acute (3) Uncontrolled diabetes mellitus Assessment & Plan: ADEQUATE CONTROLL OF BS. Status: Acute (4) Diabetic neuropathy associated with type 2 diabetes mellitus Status: Acute
[2018-03-02] MEDS: (Lantus) Insulin Glargine, Recombinant SC SCH (22:12)
[2018-03-03] MEDS: Vancomycin 750mg/NS 150 ml 150 ML IVPB SCH ×2 (06:01→17:17)
[2018-03-03 06:47] LABS: BASO # 0.1 K/uL (0.0-0.2); BASO % 1.2 % (0.0-2.0); EOS # 0.2 K/uL (0.0-0.7); EOS % 3.1 % (0.0-4.0); HEMOGLOBIN 11.1 g/dL (11.0-16.0); LYMPH # 1.3 K/uL (1.0-4.3); LYMPH % 22.5 % (20.0-40.0); MEAN CELL VOLUME 87.9 fL (81.0-99.0); MEAN CORPUSCULAR HEMOGLOBIN 30.2 pg (27.0-31.0); MEAN CORPUSCULAR HGB CONC 34.4 g/dL (33.0-37.0); MEAN PLATELET VOLUME 9.6 fL (7.2-11.7); MONO # 0.3 K/uL (0.0-0.8); MONO % 5.3 % (0.0-10.0); NEUT # 3.9 K/uL (1.8-7.0); NEUT % 67.9 % (50.0-75.0); RBC 3.68 Mil/uL (3.80-5.20); RED CELL DISTRIBUTION WIDTH 15.6 % (11.5-14.5); WHITE BLOOD COUNT 5.8 K/uL (4.8-10.8)
--- NOTE | 2018-03-03 07:15 | CP.PCM.PN ---
Subjective - Date & Time of Evaluation Date of Evaluation: 03/03/18 Time of Evaluation: :13 - Subjective Subjective: PGY-1 medicine note for hospitalist service covering Dr. Bergeron. Patient seen and evaluated at bedside. Patient states she still has pain, but mildly improved from yesterday. Also complains of persistent cough with clear sputum. Denies chest pain, shortness of breath, fever, chills, headache, abdominal pain, nausea and vomiting. Objective - Vital Signs/Intake and Output Vital Signs (last 24 hours): Temp Pulse Resp BP Pulse Ox 98 F 61 20 111/58 L 100 03/03/18 00:42 03/03/18 00:42 03/03/18 00:42 03/03/18 00:42 03/03/18 00:42 - Medications Medications: Current Medications Albuterol (Ventolin Hfa 90 Mcg/Actuation (8 G)) 2 puff INH Q6 PRN Last Admin: 03/01/18 13:50 Dose: 2 puff Amlodipine Besylate (Norvasc) 5 mg PO DAILY [facility] Last Admin: 03/02/18 09:28 Dose: 5 mg Aspirin (Ecotrin) 81 mg PO DAILY [facility] Last Admin: 03/02/18 10:33 Dose: 81 mg Cyclobenzaprine HCl (Flexeril) 10 mg PO BID [facility] Last Admin: 03/02/18 18:13 Dose: 10 mg Enoxaparin Sodium (Lovenox) 40 mg SC DAILY [facility] Last Admin: 03/02/18 09:29 Dose: 40 mg Famotidine (Pepcid) 20 mg PO BID [facility] Last Admin: 03/02/18 18:13 Dose: 20 mg Gabapentin (Neurontin) 200 mg PO Q8H [facility] Last Admin: 03/03/18 05:59 Dose: 200 mg Ceftriaxone Sodium 1 gm/ (Sodium Chloride) 100 mls @ 100 mls/hr IVPB Q12H [facility] PRN Reason: Protocol Last Admin: 03/03/18 02:37 Dose: 100 mls/hr Vancomycin HCl (Vancocin 750mg/Ns 150 Ml) 150 mls @ 100 mls/hr IVPB Q12H [facility] PRN Reason: Protocol Last Admin: 03/03/18 06:01 Dose: 100 mls/hr Insulin Aspart (Novolog) 0 unit SC ACHS [facility] PRN Reason: Protocol Last Admin: 03/02/18 18:14 Dose: 2 units Insulin Aspart (Novolog) 2 unit SC AC [facility] Insulin Glargine (Lantus) 31 unit SC [facility] Last Admin: 03/02/18 22:12 Dose: 31 units Lactobacillus Acidophilus (Bacid Acidophilus) 1 cap PO DAILY [facility] Last Admin: 03/02/18 10:33 Dose: 1 cap Lisinopril (Zestril) 10 mg PO Q12 [facility] Last Admin: 03/02/18 22:12 Dose: 10 mg Metformin HCl (Glucophage) 1,000 mg PO BIDCC [facility] Last Admin: 03/02/18 17:55 Dose: 1,000 mg Rosuvastatin Calcium (Crestor) 10 mg PO [facility] Last Admin: 03/02/18 22:12 Dose: 10 mg Sertraline HCl (Zoloft) 100 mg PO DAILY [facility] Last Admin: 03/02/18 09:28 Dose: 100 mg Tramadol HCl (Ultram) 50 mg PO Q6H PRN PRN Reason: Pain, moderate (4-7) Last Admin: 03/02/18 18:33 Dose: 50 mg - Labs Labs: 03/03/18 06:38 02/28/18 13:09 - Constitutional Appears: No Acute Distress - Head Exam Head Exam: ATRAUMATIC, NORMAL INSPECTION, NORMOCEPHALIC - Eye Exam Eye Exam: EOMI - ENT Exam ENT Exam: Mucous Membranes Moist - Respiratory Exam Respiratory Exam: Rales (fine rales bilateral bases), NORMAL BREATHING PATTERN. absent: Rhonchi, Wheezes, Respiratory Distress - Cardiovascular Exam Cardiovascular Exam: REGULAR RHYTHM, +S1, +S2. absent: Murmur - GI/Abdominal Exam GI & Abdominal Exam: Soft, Normal Bowel Sounds. absent: Tenderness - Neurological Exam Neurological Exam: Alert, Awake, Oriented x3 - Psychiatric Exam Psychiatric exam: Normal Mood Assessment and Plan - Assessment and Plan (Free Text) Plan: Hospitalist covering for Dr. Bergeron Patient was seen and examined at 6:00 PM. 62 year old female who was admitted for superficial ulceration of the plantar aspect of the Right Foot First MTP. Wound culture shows S. aureus. Bone Scan 08/08 showed evidence of cellulitis but without osteomyelitis. 1). Right First Toe #1 MTP Pedal Surface Diabetic Dry Ulcer Cellulitis Bone Scan 03/02/18 shows cellulitis and NO osteomyelitis Wound Culture 02/28/18 shows S. aureus Ceftriaxone 1 gm IV Q12H Vancomycin 750 mg IV Q12H (6 AM and 6 PM) F/U Vancomycin Trough 03/04/18 at 5:30 AM F/U Blood Culture ID Dr. Franklin Burnett Podiatry Team is also following 2). Hx DM 2 Aspart ISS Lantus increased to 31 units SC HS starting 03/02/18 Aspart 2 units SC AC Meals starting 03/03/18 Metformin 1,000 mg PO 2x/day F/U HgBA1C F/U TSH F/U T4 3). HTN Norvasc 5 mg PO 1x/day Zestril 10 mg PO Q12H 4). HLD Crestor 10 mg PO HS 5). Depression/Anxiety Zoloft 100 mg PO 1x/day 6). Asthma Ventolin 2 puffs INH Q6H PRN SOB/Wheezing 7). Diabetic Neuropathy Gabapentin 200 mg PO Q8H 8). Complaints of Cough with Bilateral Lower Lung Base Inspiratory Crackles F/U CXR PA/Lateral She is a current smoker and has been for a number of years 9). Prophylaxis ASA 81 mg PO 1x/day Cyclobenzaprin 10 mg PO 2x/day Lovenox 40 mg SC 1x/day Pepcid 20 mg PO 2x/day Lactobacillus 1 cap PO 1x/day Tramadol 50 mg PO Q6H PRN Pain PT Evaluation and Treat Glucerna 3x/day to make sure that patient gets the daily required nutrition despite the decreased appetite
[2018-03-03 07:27] LABS: ALB/GLOB RATIO 1.1 (1.0-2.1); ALBUMIN 3.3 g/dL (3.5-5.0); ALT/SGPT 22 U/L (9-52); AST/SGOT 29 U/L (14-36); BLOOD UREA NITROGEN 23 mg/dL (7-17); CALCIUM 8.6 mg/dl (8.6-10.4); GFR AFRICAN-AMERICAN > 60; GFR NON-AFRICAN AMERICAN 57; HDL CHOLESTEROL 30 mg/dL (30-70)
[2018-03-03] MEDS: (Novolog) Insulin Aspart, Recombinant 100 u/ml 10 ml vial SC SCH ×7 (07:30→21:36)
[2018-03-03 07:32] LABS: LDL CHOLESTEROL 63 mg/dL (0-129)
--- NOTE | 2018-03-03 08:59 | CP.PCM.PN ---
Subjective - Date & Time of Evaluation Date of Evaluation: 03/03/18 Time of Evaluation: 08:30 - Subjective Subjective: Hospitalist covering for Dr. Bergeron Patient was seen and examined at 8:30 AM 550 A 62 year old female who was admitted for superficial ulceration of the plantar aspect of the Right Foot First MTP. Wound culture shows S. aureus. Bone Scan 03/02/18 showed evidence of cellulitis but without osteomyelitis. However, considering location of the ulcer over the Sesamoid Bone which does not have a good blood supply and considering ESR elevated at 95, osteomyelitis is still a possibility. Therefore will arrange for PICC Line placement and will await further recommendations from ID as to optimal antibiotic and length of treatment. Photographer Motion Picture Farheen was made aware of the likely need for extended antibiotic administration and she will work towards setting up administration at home (if antibiotic administration is more than once a day) or administration at [facility] (if antibiotic administration is once a day). Also noted on exam is Holosystolic Murmur heard in ALL auscultatory galvez and considering the S. aureus positive wound culture, Echocardiogram has been ordered ([facility] has been notified and will try to perform today 03/03/18 but if unable then will perform morning 03/04/18). Chest X Ray will also need to be followed up considering bilateral rales heard on exam. Currently upon FULL ROS: Bilateral Leg pain that is a soreness to squeezing type of pain that involves the entire feet to legs: currently not an issue Hungry this morning Moving her bowels normally: last bowel movement 03/02/18 NO chest pain NO SOB (+) Cough that is occasionally productive of white sputum for past few days: has not occurred this morning NO abdominal pain NO n/v/d/c NO burning pain with urination NO dysphagia/odynophagia NO new changes in visioin NO new changes in hearing NO headache (+)Dizziness: this is a chronic issue that usually occurs after getting up from a seated or laying position for a prolonged period of time. Exam: General: AAOX3, NAD HEENT: NCA, EOMI, PERRLA, NO cervical/supraclavicular/submandibular lymphadenopathy, NO pharyngeal erythema/exudate, Nasal Turbinates are nonerythematous/nonedematous, Oral Mucosa is moist Cardio: NS1 and NS2, Holosystolic Murmur heard in all of the auscultatory galvez Resp: Bilateral Lung Base Inspiratory Crackles GI: BSx4, Soft, NT, NO HSM, NO guarding/rebound tenderness Ext: Pulses are strong and equal in bilateral UE, Pulses are palpable in the bilateral LE but they are weaker than UE, Capillary Refill is 2 seconds, NO edema, Right Big Toe pedal surface base there is a dry callous roughly 2 cm in diameter with no other evidence of cellulitis Neuro: CN II through XII are grossly intact 1). Right First Toe #1 MTP Pedal Surface Diabetic Dry Ulcer Cellulitis Bone Scan 03/02/18 shows cellulitis and NO osteomyelitis Wound Culture 02/28/18 shows S. aureus Ceftriaxone 1 gm IV Q12H Vancomycin 750 mg IV Q12H (6 AM and 6 PM) F/U Vancomycin Trough 03/04/18 at 5:30 AM Blood Culture 02/28/18 is negative to date F/U 2D Echocardiogram ID Dr. Franklin Burnett Podiatry Team is also following 2). Hx DM 2 Aspart ISS Lantus increased to 31 units SC HS on night of 03/02/18 Aspart 2 units SC AC Meals starting 03/03/18 Adjust Lantus and Aspart if needed on 03/04/18 Metformin 1,000 mg PO 2x/day Patient is on an ARMINDA Inhibitor and a Statin HgBA1C is 12.5 TSH and T4 are WNL 3). HTN Norvasc 5 mg PO 1x/day Zestril 10 mg PO Q12H 4). HLD Crestor 10 mg PO HS 5). Depression/Anxiety Zoloft 100 mg PO 1x/day 6). Asthma Ventolin 2 puffs INH Q6H PRN SOB/Wheezing 7). Diabetic Neuropathy Gabapentin 200 mg PO Q8H 8). Complaints of Cough with Bilateral Lower Lung Base Inspiratory Crackles CXR PA/Lateral will be performed after PICC Line has been placed She is a current smoker (1/2 pack a day) and has been for a number of years: she has been warned and is aware that this will delay the healing of her right foot ulcer 9). Prophylaxis ASA 81 mg PO 1x/day Cyclobenzaprine 10 mg PO 2x/day Lovenox 40 mg SC 1x/day Pepcid 20 mg PO 2x/day Lactobacillus 1 cap PO 1x/day Tramadol 50 mg PO Q6H PRN Pain PT Evaluation and Treat Glucerna 3x/day to make sure that patient gets the daily required nutrtion despite the decreased appetite Disposition: please see HPI above for full details. Primary Attending Dr. Jeanette Bergeron will take over care of patient on 03/04/18. Agustin Fiore D.O. Objective - Vital Signs/Intake and Output Vital Signs (last 24 hours): Temp Pulse Resp BP Pulse Ox 98 F 64 20 128/62 97 03/03/18 08:18 03/03/18 08:18 03/03/18 08:18 03/03/18 08:18 03/03/18 08:18 - Medications Medications: Current Medications Albuterol (Ventolin Hfa 90 Mcg/Actuation (8 G)) 2 puff INH Q6 PRN Last Admin: 03/01/18 13:50 Dose: 2 puff Amlodipine Besylate (Norvasc) 5 mg PO DAILY [facility] Last Admin: 03/02/18 09:28 Dose: 5 mg Aspirin (Ecotrin) 81 mg PO DAILY [facility] Last Admin: 03/02/18 10:33 Dose: 81 mg Cyclobenzaprine HCl (Flexeril) 10 mg PO BID [facility] Last Admin: 03/02/18 18:13 Dose: 10 mg Enoxaparin Sodium (Lovenox) 40 mg SC DAILY [facility] Last Admin: 03/02/18 09:29 Dose: 40 mg Famotidine (Pepcid) 20 mg PO BID [facility] Last Admin: 03/02/18 18:13 Dose: 20 mg Gabapentin (Neurontin) 200 mg PO Q8H [facility] Last Admin: 03/03/18 05:59 Dose: 200 mg Ceftriaxone Sodium 1 gm/ (Sodium Chloride) 100 mls @ 100 mls/hr IVPB Q12H [facility] PRN Reason: Protocol Last Admin: 03/03/18 02:37 Dose: 100 mls/hr Vancomycin HCl (Vancocin 750mg/Ns 150 Ml) 150 mls @ 100 mls/hr IVPB Q12H [facility] PRN Reason: Protocol Last Admin: 03/03/18 06:01 Dose: 100 mls/hr Insulin Aspart (Novolog) 0 unit SC ACHS [facility] PRN Reason: Protocol Last Admin: 03/02/18 18:14 Dose: 2 units Insulin Aspart (Novolog) 2 unit SC AC [facility] Insulin Glargine (Lantus) [address] [facility] Last Admin: 03/02/18 22:12 Dose: 31 units Lactobacillus Acidophilus (Bacid Acidophilus) 1 cap PO DAILY [facility] Last Admin: 03/02/18 10:33 Dose: 1 cap Lisinopril (Zestril) 10 mg PO Q12 [facility] Last Admin: 03/02/18 22:12 Dose: 10 mg Metformin [facility] ([facility]) [facility] Last Admin: 03/03/18 08:25 Dose: 1,000 mg Rosuvastatin Calcium (Crestor) [address] [facility] Last Admin: 03/02/18 22:12 Dose: 10 mg Sertraline HCl (Zoloft) 100 mg PO DAILY [facility] Last Admin: 03/02/18 09:28 Dose: 100 mg Tramadol HCl (Ultram) 50 mg PO Q6H PRN PRN Reason: Pain, moderate (4-7) Last Admin: 03/02/18 18:33 Dose: 50 mg - Labs Labs: 03/03/18 06:38 03/03/18 06:38
[2018-03-03] MEDS: Enoxaparin 40 mg Syringe SC SCH (10:00)
[2018-03-03] MEDS: Lactobacillus Acidophilus 500 MU Cap PO SCH ×2 (10:00→12:20)
--- NOTE | 2018-03-03 10:58 | CP.PCM.PN ---
Subjective - Date & Time of Evaluation Date of Evaluation: 03/03/18 Time of Evaluation: 10:58 - Subjective Subjective: CHIEF COMPLAINTS TODAY : AFEBRILE, no new complaints 3PHASE BONE SCAN -VE OSTEOMYLITIS/ +VE CELLULITIS ROS. HEENT : N. Resp : No cough, wheezing ,pleuritic CP ,or hemoptysis Cardio : No anginal CP, PND, orthopnea, palpitation GI : No abd.pain, n/v ,diarrhea or GI bleeding . DRUPAL PHP DEVELOPER : No headache, vertigo, focal deficit. Musculoskel : No joint swelling , Derm : No rash Psych : Normal affect. Ext : No swelling ,calf pain, superficial ulceration to plantar aspect of right foot PE. Pt. is alert awake in no distress. V.S As noted in the chart Head ,ear nose,throat and eyes : Normal. Neck : Supple with normal carotids. Lungs: Clear air entry. Heart : S1 & S2 normal with S4. No murmur. Abd : Soft non tender with normal bowel sounds. Neuro : Moves all ext. with no localized deficit. Ext : mild edema rt foot, with intact pulses.Non tender calves superficial ulceration to plantar aspect of right foot 1ST MTP-DRY WOUND Derm : No rashes or decubitus ulcer. LABS/RADIOLOGY: WOUND CULTURE +VE STAPH AUREUS ( MSSA ) 02/28/18 BLOOD CULTURE -VE GROWTH. ESR 95 BONE SCAN-CONSISTENT WITH CELLULITIS PLANTAR ASPECT NO EVIDENCE OF OSTEOMYELITIS. Objective - Vital Signs/Intake and Output Vital Signs (last 24 hours): Temp Pulse Resp BP Pulse Ox 98 F 64 20 128/62 97 03/03/18 08:18 03/03/18 08:18 03/03/18 08:18 03/03/18 08:18 03/03/18 08:18 - Medications Medications: Current Medications Albuterol (Ventolin Hfa 90 Mcg/Actuation (8 G)) 2 puff INH Q6 PRN Last Admin: 03/01/18 13:50 Dose: 2 puff Amlodipine Besylate (Norvasc) 5 mg PO DAILY [facility] Last Admin: 03/02/18 09:28 Dose: 5 mg Aspirin (Ecotrin) 81 mg PO DAILY [facility] Last Admin: 03/02/18 10:33 Dose: 81 mg Cyclobenzaprine HCl (Flexeril) 10 mg PO BID [facility] Last Admin: 03/02/18 18:13 Dose: 10 mg Enoxaparin Sodium (Lovenox) 40 mg SC DAILY [facility] Last Admin: 03/02/18 09:29 Dose: 40 mg Famotidine (Pepcid) 20 mg PO BID [facility] Last Admin: 03/02/18 18:13 Dose: 20 mg Gabapentin (Neurontin) 200 mg PO Q8H [facility] Last Admin: 03/03/18 05:59 Dose: 200 mg Ceftriaxone Sodium 1 gm/ (Sodium Chloride) 100 mls @ 100 mls/hr IVPB Q12H [facility] PRN Reason: Protocol Last Admin: 03/03/18 02:37 Dose: 100 mls/hr Vancomycin HCl (Vancocin 750mg/Ns 150 Ml) 150 mls @ 100 mls/hr IVPB Q12H [facility] PRN Reason: Protocol Last Admin: 03/03/18 06:01 Dose: 100 mls/hr Insulin Aspart (Novolog) 0 unit SC ACHS [facility] PRN Reason: Protocol Last Admin: 03/02/18 18:14 Dose: 2 units Insulin Aspart (Novolog) 2 unit SC AC [facility] Insulin Glargine (Lantus) 31 unit SC [facility] Last Admin: 03/02/18 22:12 Dose: 31 units Lactobacillus Acidophilus (Bacid Acidophilus) 1 cap PO DAILY [facility] Last Admin: 03/02/18 10:33 Dose: 1 cap Lisinopril (Zestril) 10 mg PO Q12 [facility] Last Admin: 03/02/18 22:12 Dose: 10 mg Metformin [facility] (Gl[facility]) [facility] Last Admin: 03/03/18 08:25 Dose: 1,000 mg Rosuvastatin Calcium (Crestor) 10 mg PO HS [facility] Last Admin: 03/02/18 22:12 Dose: 10 mg Sertraline HCl (Zoloft) 100 mg PO DAILY [facility] Last Admin: 03/02/18 09:28 Dose: 100 mg Tramadol HCl (Ultram) 50 mg PO Q6H PRN PRN Reason: Pain, moderate (4-7) Last Admin: 03/02/18 18:33 Dose: 50 mg - Labs Labs: 03/03/18 06:38 03/03/18 06:38 Assessment and Plan (1) Diabetic foot ulcer Status: Acute (2) Cellulitis and abscess of digit Assessment & Plan: Case discussed with hospitalist Dr. Felicitas Fiore. As per detonator maker Dr. Orlando patient has a pedal ulcer right over the sesamoid bone which does not have good vascularization so the nuclear bone scan did not light up this bone even if suspected osteomyelitis. Patient's esr is 95 and he is recommending to treat as osteomyelitis. This is patient's second hospitalization for the same problem, so therefore as discussed with hospitalist to arrange for PICC line. Patient has MSSA so would de-escalate antibiotics to Rocephin 2 g once a day daily for 6 weeks. Follow-up CBC, BMP, LFTs, sedimentation rate and CRP weekly. WOUND CARE PER PODIATRY. Status: Acute (3) Uncontrolled diabetes mellitus Status: Acute (4) Diabetic neuropathy associated with type 2 diabetes mellitus Status: Acute
--- NOTE | 2018-03-03 10:59 | PN ---
DATE: 03/03/2018 TIME OF EVALUATION: 07:45 a.m. SUBJECTIVE: The patient is seen at bedside, alert and oriented x3. The patient has been admitted for a nonhealing ulcer on the plantar aspect of the first metatarsophalangeal joint of the right foot. The patient was started on IV antibiotics and it appears that there is less cellulitis and less discomfort of the right lower extremity. In lieu of the elevated sed rate over 90 and a bone imaging. This clinical situation is confusing due to the fact that there is no obvious imaging studies demonstrating osteomyelitis. However, in the light of elevated sed rates and chronic longstanding ulcer of the right foot, I still suspect some osteomyelitic component. The patient refusing subacute therapy, but has agreed to some outpatient IV antibiotics therapy, which could potentially be merit this. We will follow up with her on an outpatient basis next week. No surgical intervention planned at this time. Robin Arshad DPM
--- NOTE | 2018-03-03 11:34 | CP.PCM.PN ---
Subjective - Date & Time of Evaluation Date of Evaluation: 03/03/18 Time of Evaluation: 11:31 - Subjective Subjective: Podiatry Progress note: Dr. Orlando 62 year old female patient was seen and evaluated at bedside for right foot 1st MTPJ chronic wound. Denies of any pedal complains at the time of the visit. Patient is AAOx3 and appears in no acute distress. Denies of any overnight F/N/V /C/SOB/CP. PICC in place. Objective - Vital Signs/Intake and Output Vital Signs (last 24 hours): Temp Pulse Resp BP Pulse Ox 98 F 64 20 128/62 97 03/03/18 08:18 03/03/18 08:18 03/03/18 08:18 03/03/18 08:18 03/03/18 08:18 - Medications Medications: Current Medications Albuterol (Ventolin Hfa 90 Mcg/Actuation (8 G)) 2 puff INH Q6 PRN Last Admin: 03/01/18 13:50 Dose: 2 puff Amlodipine Besylate (Norvasc) 5 mg PO DAILY [facility] Last Admin: 03/02/18 09:28 Dose: 5 mg Aspirin (Ecotrin) 81 mg PO DAILY [facility] Last Admin: 03/02/18 10:33 Dose: 81 mg Cyclobenzaprine HCl (Flexeril) 10 mg PO BID [facility] Last Admin: 03/02/18 18:13 Dose: 10 mg Enoxaparin Sodium (Lovenox) 40 mg SC DAILY [facility] Last Admin: 03/02/18 09:29 Dose: 40 mg Famotidine (Pepcid) 20 mg PO BID [facility] Last Admin: 03/02/18 18:13 Dose: 20 mg Gabapentin (Neurontin) 200 mg PO Q8H [facility] Last Admin: 03/03/18 05:59 Dose: 200 mg Ceftriaxone Sodium 1 gm/ (Sodium Chloride) 100 mls @ 100 mls/hr IVPB Q12H [facility] PRN Reason: Protocol Last Admin: 03/03/18 02:37 Dose: 100 mls/hr Vancomycin HCl (Vancocin 750mg/Ns 150 Ml) 150 mls @ 100 mls/hr IVPB Q12H [facility] PRN Reason: Protocol Last Admin: 03/03/18 06:01 Dose: 100 mls/hr Insulin Aspart (Novolog) 0 unit SC ACHS [facility] PRN Reason: Protocol Last Admin: 03/02/18 18:14 Dose: 2 units Insulin Aspart (Novolog) 2 unit SC AC [facility] Insulin Glargine (Lantus) 31 unit SC HS [facility] Last Admin: 03/02/18 22:12 Dose: 31 units Lactobacillus Acidophilus (Bacid Acidophilus) 1 cap PO DAILY [facility] Last Admin: 03/02/18 10:33 Dose: 1 cap Lisinopril (Zestril) 10 mg PO Q12 [facility] Last Admin: 03/02/18 22:12 Dose: 10 mg Metformin HCl (Glucophage) 1,000 mg PO BIDCC [facility] Last Admin: 03/03/18 08:25 Dose: 1,000 mg Rosuvastatin Calcium (Crestor) 10 mg PO [facility] Last Admin: 03/02/18 22:12 Dose: 10 mg Sertraline HCl (Zoloft) 100 mg PO DAILY [facility] Last Admin: 03/02/18 09:28 Dose: 100 mg Tramadol HCl (Ultram) 50 mg PO Q6H PRN PRN Reason: Pain, moderate (4-7) Last Admin: 03/02/18 18:33 Dose: 50 mg - Labs Labs: 03/03/18 06:38 03/03/18 06:38 - Constitutional Appears: Well, Non-toxic, No Acute Distress - Extremities Exam Additional comments: Right lower extremity exam DERM: 2 superficial open ulceration to plantar aspect of right 1st MTPJ each measuring approx. 0.5 cm x 0.5 cm 0.1 cm; Wound base appears healing with hyperkeratotic tissue. No purulent discharge noted. no erythema, no edema, no probe to bone, no malodor., no tunneling, no tracking VASC: DP/PT pulses are faintly palpable 1/4 b/l, ANGLESMITH HELPER less than 3 seconds to all digits NEURO: Gross sensation diminished ORTHO: No pain on palpation to right foot at the level of the ulceration. Decreased ROM noted to right ankle - Neurological Exam Neurological Exam: Alert, Awake, Oriented x3 - Psychiatric Exam Psychiatric exam: Normal Affect, Normal Mood Assessment and Plan - Assessment and Plan (Free Text) Assessment: 62 yo female patient presents with right foot ulceration Plan: Patient was seen, evaluated at bedside Discussed in detail with Dr. Orlando labs and vitals reviewed - afebrile, no leukocytosis -ESR 95 Right foot cleansed with saline, peroxide and dressed with wet to dry DSD X-ray reveals no osteomyelitis, no fracture 3 phase bone scan: Cellulitis with no acute signs of OM PICC in place; will receive 6 weeks of IV Ceftriaxone 2 gm Stable from podiatry standpoint Upon discharge, please follow up with Dr. Orlando at his office Podiatry will continue following in house
--- NOTE | 2018-03-03 11:47 | RAD ---
HISTORY: COMPARISON: 02/22/2015. TECHNIQUE: Chest PA and lateral FINDINGS: LINES AND TUBES: The right PICC line terminates in the SVC. LUNG AND PLEURA: The lungs are well inflated and clear. There is subsegmental atelectasis in the left lower lobe. No pleural effusion or pneumothorax. HEART AND MEDIASTINUM: The heart is not enlarged. Atherosclerotic aortic arch calcifications are present. The hilar and mediastinal contours are within normal limits. SKELETAL STRUCTURES: The bony structures are within normal limits for the patient's age. VISUALIZED UPPER ABDOMEN: Normal. OTHER FINDINGS: None. IMPRESSION: No active pulmonary disease.
--- NOTE | 2018-03-03 16:34 | CP.PCM.PN ---
Subjective - Date & Time of Evaluation Date of Evaluation: 03/03/18 Time of Evaluation: 16:34 Objective - Vital Signs/Intake and Output Vital Signs (last 24 hours): Temp Pulse Resp BP Pulse Ox 98.4 F 49 L 20 160/77 H 97 03/03/18 13:03 03/03/18 13:03 03/03/18 13:03 03/03/18 13:03 03/03/18 13:03 Intake and Output: 03/03/18 03/03/18 06:59 18:59 Intake Total 100 Balance 100 - Medications Medications: Current Medications Albuterol (Ventolin Hfa 90 Mcg/Actuation (8 G)) 2 puff INH Q6 PRN Last Admin: 03/01/18 13:50 Dose: 2 puff Amlodipine Besylate (Norvasc) 5 mg PO DAILY [facility] Last Admin: 03/03/18 12:21 Dose: 5 mg Aspirin (Ecotrin) 81 mg PO DAILY [facility] Last Admin: 03/03/18 10:00 Dose: Not Given Cyclobenzaprine HCl (Flexeril) 10 mg PO BID [facility] Last Admin: 03/03/18 10:00 Dose: Not Given Enoxaparin Sodium (Lovenox) 40 mg SC DAILY [facility] Last Admin: 03/03/18 10:00 Dose: Not Given Famotidine (Pepcid) 20 mg PO BID [facility] Last Admin: 03/03/18 10:00 Dose: Not Given Gabapentin (Neurontin) 200 mg PO Q8H [facility] Last Admin: 03/03/18 14:23 Dose: Not Given Ceftriaxone Sodium 1 gm/ (Sodium Chloride) 100 mls @ 100 mls/hr IVPB Q12H [facility] PRN Reason: Protocol Last Admin: 03/03/18 14:50 Dose: 100 mls/hr Vancomycin HCl (Vancocin 750mg/Ns 150 Ml) 150 mls @ 100 mls/hr IVPB Q12H [facility] PRN Reason: Protocol Last Admin: 03/03/18 06:01 Dose: 100 mls/hr Insulin Aspart (Novolog) 0 unit SC ACHS [facility] PRN Reason: Protocol Last Admin: 03/03/18 12:15 Dose: Not Given Insulin Aspart (Novolog) 2 unit SC AC [facility] Last Admin: 03/03/18 12:21 Dose: 2 units Insulin Glargine (Lantus) 31 unit SC HS [facility] Last Admin: 03/02/18 22:12 Dose: 31 units Lactobacillus Acidophilus (Bacid Acidophilus) 1 cap PO DAILY [facility] Last Admin: 03/03/18 12:20 Dose: 1 cap Lisinopril (Zestril) 10 mg PO Q12 [facility] Last Admin: 03/03/18 10:00 Dose: Not Given Metformin HCl (Glucophage) 1,000 mg PO BIDCC [facility] Last Admin: 03/03/18 08:25 Dose: 1,000 mg Rosuvastatin Calcium (Crestor) 10 mg PO [facility] Last Admin: 03/02/18 22:12 Dose: 10 mg Sertraline HCl (Zoloft) 100 mg PO DAILY [facility] Last Admin: 03/03/18 12:20 Dose: 100 mg Tramadol HCl (Ultram) 50 mg PO Q6H PRN PRN Reason: Pain, moderate (4-7) Last Admin: 03/02/18 18:33 Dose: 50 mg - Labs Labs: 03/03/18 06:38 03/03/18 06:38 Assessment and Plan (1) Diabetic foot ulcer Status: Acute (2) Cellulitis and abscess of digit Status: Acute (3) Uncontrolled diabetes mellitus Status: Acute (4) Diabetic neuropathy associated with type 2 diabetes mellitus Status: Acute
[2018-03-03] MEDS: (Lantus) Insulin Glargine, Recombinant SC SCH (21:36)
[2018-03-04] MEDS: Vancomycin 750mg/NS 150 ml 150 ML IVPB SCH (06:18)
[2018-03-04 07:21] LABS: BASO # 0.1 K/uL (0.0-0.2); BASO % 0.9 % (0.0-2.0); EOS # 0.2 K/uL (0.0-0.7); EOS % 2.9 % (0.0-4.0); HEMOGLOBIN 11.2 g/dL (11.0-16.0); LYMPH # 1.2 K/uL (1.0-4.3); LYMPH % 19.1 % (20.0-40.0); MEAN CELL VOLUME 86.9 fL (81.0-99.0); MEAN CORPUSCULAR HEMOGLOBIN 29.8 pg (27.0-31.0); MEAN CORPUSCULAR HGB CONC 34.3 g/dL (33.0-37.0); MEAN PLATELET VOLUME 9.8 fL (7.2-11.7); MONO # 0.4 K/uL (0.0-0.8); MONO % 5.7 % (0.0-10.0); NEUT # 4.4 K/uL (1.8-7.0); NEUT % 71.4 % (50.0-75.0); NRBC % 0.2 % (0.0-2.0); RBC 3.77 Mil/uL (3.80-5.20); RED CELL DISTRIBUTION WIDTH 15.4 % (11.5-14.5); WHITE BLOOD COUNT 6.2 K/uL (4.8-10.8)
[2018-03-04] MEDS: (Novolog) Insulin Aspart, Recombinant 100 u/ml 10 ml vial SC SCH ×4 (07:35→12:22)
[2018-03-04 07:56] LABS: ALB/GLOB RATIO 1.1 (1.0-2.1); ALBUMIN 3.4 g/dL (3.5-5.0); ALT/SGPT 21 U/L (9-52); AST/SGOT 27 U/L (14-36); BLOOD UREA NITROGEN 18 mg/dL (7-17); GFR AFRICAN-AMERICAN > 60; GFR NON-AFRICAN AMERICAN > 60
[2018-03-04 08:08] VITALS: BP 136/80; PULSE 69; TEMP 98.1
[2018-03-04] MEDS: Enoxaparin 40 mg Syringe SC SCH (10:06)
--- NOTE | 2018-03-04 11:42 | CP.PCM.PN ---
Subjective - Date & Time of Evaluation Date of Evaluation: 03/04/18 Time of Evaluation: 11:41 - Subjective Subjective: Podiatry Progress note: Dr. Orlando 62 year old female patient was seen and evaluated at bedside for right foot 1st MTPJ chronic wound. Denies of any pedal complains at the time of the visit. Patient is AAOx3 and appears in no acute distress. Denies of any overnight F/N/V /C/SOB/CP. PICC in place. Reports that she will be going home today. Objective - Vital Signs/Intake and Output Vital Signs (last 24 hours): Temp Pulse Resp BP Pulse Ox 98.1 F 69 20 136/80 96 03/04/18 08:00 03/04/18 08:00 03/04/18 08:00 03/04/18 08:00 03/04/18 08:00 Intake and Output: 03/04/18 03/04/18 06:59 18:59 Intake Total 700 Balance 700 - Medications Medications: Current Medications Albuterol (Ventolin Hfa 90 Mcg/Actuation (8 G)) 2 puff INH Q6 PRN Last Admin: 03/01/18 13:50 Dose: 2 puff Amlodipine Besylate (Norvasc) 5 mg PO DAILY [facility] Last Admin: 03/04/18 10:06 Dose: 5 mg Aspirin (Ecotrin) 81 mg PO DAILY [facility] Last Admin: 03/04/18 10:06 Dose: 81 mg Cyclobenzaprine HCl (Flexeril) 10 mg PO BID [facility] Last Admin: 03/04/18 10:06 Dose: 10 mg Enoxaparin Sodium (Lovenox) 40 mg SC DAILY [facility] Last Admin: 03/04/18 10:06 Dose: 40 mg Famotidine (Pepcid) 20 mg PO BID [facility] Last Admin: 03/04/18 10:06 Dose: 20 mg Gabapentin (Neurontin) 200 mg PO Q8H [facility] Last Admin: 03/04/18 06:18 Dose: 200 mg Ceftriaxone Sodium 1 gm/ (Sodium Chloride) 100 mls @ 100 mls/hr IVPB Q12H [facility] PRN Reason: Protocol Last Admin: 03/04/18 02:20 Dose: 100 mls/hr Vancomycin HCl (Vancocin 750mg/Ns 150 Ml) 150 mls @ 100 mls/hr IVPB Q12H [facility] PRN Reason: Protocol Last Admin: 03/04/18 06:18 Dose: 100 mls/hr Insulin Aspart (Novolog) 0 unit SC ACHS [facility] PRN Reason: Protocol Last Admin: 03/04/18 07:35 Dose: Not Given Insulin Aspart (Novolog) 2 unit SC AC [facility] Last Admin: 03/04/18 08:10 Dose: 2 units Insulin Glargine (Lantus) 31 unit SC HS [facility] Last Admin: 03/03/18 21:36 Dose: Not Given Lactobacillus Acidophilus (Bacid Acidophilus) 1 cap PO DAILY [facility] Last Admin: 03/03/18 12:20 Dose: 1 cap Lisinopril (Zestril) 10 mg PO Q12 [facility] Last Admin: 03/04/18 10:06 Dose: 10 mg Metformin HCl (Glucophage) 1,000 mg PO BIDCC [facility] Last Admin: 03/04/18 08:10 Dose: 1,000 mg Rosuvastatin Calcium (Crestor) 10 mg PO [facility] Last Admin: 03/03/18 21:46 Dose: 10 mg Sertraline HCl (Zoloft) 100 mg PO DAILY [facility] Last Admin: 03/04/18 10:06 Dose: 100 mg Tramadol HCl (Ultram) 50 mg PO Q6H PRN PRN Reason: Pain, moderate (4-7) Last Admin: 03/04/18 00:04 Dose: 50 mg - Labs Labs: 03/04/18 07:09 03/04/18 07:09 - Constitutional Appears: Well, Non-toxic, No Acute Distress - Extremities Exam Additional comments: Right lower extremity exam DERM: 2 superficial open ulceration to plantar aspect of right 1st MTPJ each measuring approx. 0.5 cm x 0.5 cm 0.1 cm; Wound base appears healing with hyperkeratotic tissue. No purulent discharge noted. no erythema, no edema, no probe to bone, no malodor., no tunneling, no tracking VASC: DP/PT pulses are faintly palpable 1/4 b/l, [employer] less than 3 seconds to all digits NEURO: Gross sensation diminished ORTHO: No pain on palpation to right foot at the level of the ulceration. Decreased ROM noted to right ankle - Neurological Exam Neurological Exam: Alert, Awake, Oriented x3 - Psychiatric Exam Psychiatric exam: Normal Affect, Normal Mood Assessment and Plan - Assessment and Plan (Free Text) Assessment: 62 yo female patient presents with right foot ulceration Plan: Patient was seen, evaluated at bedside Discussed in detail with Dr. Orlando labs and vitals reviewed - afebrile, no leukocytosis -ESR 95 Right foot cleansed with saline, peroxide and dressed with wet to dry DSD X-ray reveals no osteomyelitis, no fracture 3 phase bone scan: Cellulitis with no acute signs of OM PICC in place; will receive 6 weeks of IV Ceftriaxone 2 gm Stable from podiatry standpoint Upon discharge, please follow up with Dr. Orlando at his office Podiatry will continue following in house
[2018-03-04] MEDS: Lactobacillus Acidophilus 500 MU Cap PO SCH (12:23)
--- NOTE | 2018-03-04 13:05 | CP.PCM.DIS ---
Provider - Provider Date of Admission: 02/28/18 13:09 Attending physician: Cary Bergeron MD Primary care physician: Dr. Jeanette Bergeron Consults: ID Dr. Franklin Burnett Podiatry Dr. Bird Time Spent in preparation of Discharge (in minutes): 40 Hospital Course - Lab Results Lab Results: Micro Results 02/28/18 12:50 Blood Blood Culture - Preliminary NO GROWTH AFTER 3 DAYS 02/28/18 13:00 Blood Blood Culture - Preliminary NO GROWTH AFTER 3 DAYS 02/28/18 12:15 Foot - Right Gram Stain - Final 02/28/18 12:15 Foot - Right Wound Culture - Final Staphylococcus Aureus Most Recent Lab Values WBC 6.2 K/uL (4.8-10.8) 03/04/18 07:09 RBC 3.77 Mil/uL (3.80-5.20) L 03/04/18 07:09 Hgb 11.2 g/dL (11.0-16.0) 03/04/18 07:09 Hct 32.8 % (34.0-47.0) L 03/04/18 07:09 MCV 86.9 fL (81.0-99.0) 03/04/18 07:09 MCH 29.8 pg (27.0-31.0) 03/04/18 07:09 MCHC 34.3 g/dL (33.0-37.0) 03/04/18 07:09 RDW 15.4 % (11.5-14.5) H 03/04/18 07:09 Plt Count 184 K/uL (130-400) 03/04/18 07:09 MPV 9.8 fL (7.2-11.7) 03/04/18 07:09 Neut % (Auto) 71.4 % (50.0-75.0) 03/04/18 07:09 Lymph % (Auto) 19.1 % (20.0-40.0) L 03/04/18 07:09 [place] % (Auto) 5.7 % (0.0-10.0) 03/04/18 07:09 Eos % (Auto) 2.9 % (0.0-4.0) 03/04/18 07:09 Baso % (Auto) 0.9 % (0.0-2.0) 03/04/18 07:09 Neut # (Auto) 4.4 K/uL (1.8-7.0) 03/04/18 07:09 Lymph # (Auto) 1.2 K/uL (1.0-4.3) 03/04/18 07:09 [place] # (Auto) 0.4 K/uL (0.0-0.8) 03/04/18 07:09 Eos # (Auto) 0.2 K/uL (0.0-0.7) 03/04/18 07:09 Baso # (Auto) 0.1 K/uL (0.0-0.2) 03/04/18 07:09 ESR 95 mm/hr (0-20) H 02/28/18 13:09 Sodium 142 mmol/L (132-148) 03/04/18 07:09 Potassium 4.4 mmol/L (3.6-5.2) 03/04/18 07:09 Chloride 107 mmol/L (98-107) 03/04/18 07:09 Carbon Dioxide 26 mmol/L (22-30) 03/04/18 07:09 Anion Gap 13 (10-20) 03/04/18 07:09 BUN 18 mg/dL (7-17) H 03/04/18 07:09 Creatinine 0.9 mg/dL (0.7-1.2) 03/04/18 07:09 Est GFR ( Amer) > 60 03/04/18 07:09 Est GFR (Non-Af Amer) > 60 03/04/18 07:09 POC Glucose (mg/dL) 178 mg/dL (65-110) H 03/04/18 11:05 Random Glucose 122 mg/dL (65-105) H 03/04/18 07:09 Hemoglobin A1c 12.5 % (4.2-6.5) H 03/03/18 06:38 Calcium 9.0 mg/dl (8.6-10.4) 03/04/18 07:09 Total Bilirubin 0.4 mg/dL (0.2-1.3) 03/04/18 07:09 AST 27 U/L (14-36) 03/04/18 07:09 ALT 21 U/L (9-52) 03/04/18 07:09 Alkaline Phosphatase 86 U/L (38-126) 03/04/18 07:09 Total Protein 6.6 g/dL (6.3-8.3) 03/04/18 07:09 Albumin 3.4 g/dL (3.5-5.0) L 03/04/18 07:09 Globulin 3.2 gm/dL (2.2-3.9) 03/04/18 07:09 Albumin/Globulin Ratio 1.1 (1.0-2.1) 03/04/18 07:09 Triglycerides 203 mg/dL (0-149) H 03/03/18 06:38 Cholesterol 135 mg/dL (0-199) 03/03/18 06:38 LDL Cholesterol Direct 63 mg/dL (0-129) 03/03/18 06:38 HDL Cholesterol 30 mg/dL (30-70) 03/03/18 06:38 Free T4 0.92 ng/dL (0.78-2.19) 03/03/18 06:38 TSH 3rd Generation 3.52 mIU/L (0.46-4.68) 03/03/18 06:38 Vancomycin Trough 16.9 ug/mL (5.0-10.0) H 03/04/18 07:09 - Hospital Course Hospital Course: Hospitalist covering for Dr. Bergeron Patient was seen and examined at 12:30 PM 550 A 62 year old female who was admitted for superficial ulceration of the plantar aspect of the Right Foot First MTP. Wound culture shows S. aureus. Bone Scan 03/02/18 showed evidence of cellulitis but without osteomyelitis. However, considering location of the ulcer over the Sesamoid Bone which does not have a good blood supply and considering ESR elevated at 95, osteomyelitis is still a possibility. PICC line was placed 03/03/18. Home infusion of Ceftriaxone 2 gm IV 1x/day was arranged and patient will need monitoring of her LFTs. 2D Echocardiogram was performed and results will need to be followed up by PMD. Please see Assessment and Plans below for further details. Currently upon FULL ROS: Bilateral Leg pain that is a soreness to squeezing type of pain that involves the entire feet to legs: currently not an issue Hungry this morning Moving her bowels normally: last bowel movement 03/02/18 NO chest pain NO SOB (+) Cough that is occasionally productive of white sputum for past few days: has not occurred this morning NO abdominal pain NO n/v/d/c NO burning pain with urination NO dysphagia/odynophagia NO new changes in visioin NO new changes in hearing NO headache (+)Dizziness: this is a chronic issue that usually occurs after getting up from a seated or laying position for a prolonged period of time. Exam: General: AAOX3, NAD HEENT: NCA, EOMI, PERRLA, NO cervical/supraclavicular/submandibular lymphadenopathy, NO pharyngeal erythema/exudate, Nasal Turbinates are nonerythematous/nonedematous, Oral Mucosa is moist Cardio: NS1 and NS2, Holosystolic Murmur heard in all of the auscultatory galvez Resp: Bilateral Lung Base Inspiratory Crackles GI: BSx4, Soft, NT, NO HSM, NO guarding/rebound tenderness Ext: Pulses are strong and equal in bilateral UE, Pulses are palpable in the bilateral LE but they are weaker than UE, Capillary Refill is 2 seconds, NO edema, Right Big Toe pedal surface base there is a dry callous roughly 2 cm in diameter with no other evidence of cellulitis Neuro: CN II through XII are grossly intact 1). Right First Toe #1 MTP Pedal Surface Diabetic Dry Ulcer Cellulitis Bone Scan 03/02/18 shows cellulitis and NO osteomyelitis Wound Culture 02/28/18 shows S. aureus Ceftriaxone 1 gm IV Q12H Vancomycin 750 mg IV Q12H (6 AM and 6 PM) Outpatient home infusion of Ceftriaxone 2 gm IV for total of 6 weeks from the time of admission Blood Culture 02/28/18 is negative to date F/U 2D Echocardiogram as outpatient ID Dr. Franklin Burnett Podiatry Team is also following 2). Hx DM 2 Aspart ISS Lantus increased to 31 units SC HS on night of 03/02/18 Aspart 2 units SC AC Meals starting 03/03/18 Metformin 1,000 mg PO 2x/day Patient is on an ARMINDA Inhibitor and a Statin HgBA1C is 12.5 TSH and T4 are WNL 3). HTN Norvasc 5 mg PO 1x/day Zestril 10 mg PO Q12H 4). HLD Crestor 10 mg PO HS 5). Depression/Anxiety Zoloft 100 mg PO 1x/day 6). Asthma Ventolin 2 puffs INH Q6H PRN SOB/Wheezing 7). Diabetic Neuropathy Gabapentin 200 mg PO Q8H 8). Complaints of Cough with Bilateral Lower Lung Base Inspiratory Crackles CXR PA/Lateral will be performed after PICC Line has been placed: did not show any infiltrate She is a current smoker (1/2 pack a day) and has been for a number of years: she has been warned and is aware that this will delay the healing of her right foot ulcer 9). Prophylaxis ASA 81 mg PO 1x/day Cyclobenzaprine 10 mg PO 2x/day Lovenox 40 mg SC 1x/day Pepcid 20 mg PO 2x/day Lactobacillus 1 cap PO 1x/day Tramadol 50 mg PO Q6H PRN Pain PT Evaluation and Treat Glucerna 3x/day to make sure that patient gets the daily required nutrtion despite the decreased appetite Please see full hospital admission record for full details. Agustin Fiore D.O. Discharge Exam - Head Exam Head Exam: ATRAUMATIC, NORMAL INSPECTION, NORMOCEPHALIC Discharge Plan - Follow Up Plan Condition: GOOD Disposition: HOME/ ROUTINE Instructions: Type 2 Diabetes, High Blood Pressure in Adults, Diabetes and Infections, Foot Care for Diabetics Additional Instructions: The following instructions were explained to the patient and a copy will need to be provided to her upon discharge: 1). Schedule follow up with Dr. Bergeron for this coming week. Dr. Bergeron will coordinate your health care. He will also need to follow up with the results of your Echocardiogram. 2). Schedule follow up with your flag car driver Dr. Bird. 3). You stated that you had all of your medications at home. 4). Please increase your Lantus to 31 units at bedtime. 5). Please make sure to eat a low sugar indonesian yogurt containing probiotics everyday. Please make sure that you do not eat this within 2 hours of your home infusion of antibiotic. 6). Please take care. Agustin Fiore D.O. Referrals: Robin Orlando DPM [Doctor Podiatric Medicine] - Cary Bergeron MD [Staff Provider] - Patricia Burnett MD [Staff Provider] -
[2018-03-04 20:55] VITALS: O2SAT 100
--- NOTE | 2018-03-05 13:53 | CARD ---
APPROVED REPORT Date of service: 03/03/2018 EXAM: Two-dimensional and M-mode echocardiogram with Doppler and color Doppler. Other Information Quality : GoodRhythm : INDICATION Murmur RISK FACTORS Hypertension Hyperlipidemia Diabetes 2D DIMENSIONS IVSd1.4 (0.7-1.1cm)LVDd3.4 (3.9-5.9cm) PWd1.5 (0.7-1.1cm)LVDs2.0 (2.5-4.0cm) FS (%) 41.5 %LVEF (%)73.6 (>50%) M-Mode DIMENSIONS RVDd1.82 (2.1-3.2cm)Left Atrium (MM)3.62 (2.5-4.0cm) IVSd1.15 (0.7-1.1cm)Aortic Root2.50 (2.2-3.7cm) LVDd4.40 (4.0-5.6cm)Aortic Cusp Exc.1.67 (1.5-2.0cm) PWd1.28 (0.7-1.1cm)FS (%) 50 % LVDs2.19 (2.0-3.8cm)LVEF (%)75 (>50%) Mitral Valve MV E Puewskde922.1cm/sMV A Xrmeajbq025.7cm/sE/A ratio0.8 TDI E/Lateral E'0.0E/Medial E'0.0 LEFT VENTRICLE The left ventricle is normal size. There is moderate concentric left ventricular hypertrophy. The Ejection Fraction is 65-70%. There is normal LV segmental wall motion. Transmitral Doppler flow pattern is Grade I-abnormal relaxation pattern. The left atrial pressure is mildly elevated. RIGHT VENTRICLE The right ventricle is normal size. The right ventricular systolic function is normal. ATRIA The left atrium size is normal. The right atrium size is normal. The interatrial septum is intact with no evidence for an atrial septal defect. AORTIC VALVE The aortic valve is mildly sclerotic,non coronary cusp. The aortic valve is trileaflet. No aortic regurgitation is present. Cannot exclude aortic valvular vegetation. MITRAL VALVE Mitral annular calcification is mild. There is no mitral valve regurgitation noted. TRICUSPID VALVE The tricuspid valve is normal in structure. There is no tricuspid valve regurgitation noted. PULMONIC VALVE The pulmonary valve is normal in structure. There is mild pulmonic valvular regurgitation. GREAT VESSELS The aortic root is normal size. The IVC is normal in size and collapses >50% with inspiration. PERICARDIAL EFFUSION There is small posterior pericardial effusion. <Conclusion> The left ventricle is normal size. There is moderate concentric left ventricular hypertrophy. The Ejection Fraction is 65-70%. Transmitral Doppler flow pattern is Grade I-abnormal relaxation pattern. The left atrial pressure is mildly elevated. The aortic valve is mildly sclerotic,non coronary cusp. The aortic valve is trileaflet. Cannot exclude aortic valvular vegetation. There is no pericardial effusion. clinical correlation is adv. There is small posterior pericardial effusion.
== END 2018-03-04 13:50 | disposition home or self-care (01) | DRG 638 ==
LOC: C.ER 10:50 → C.9E 13:09 → C.5S 13:40 → C.9E 14:29 → C.5S 16:23
PROVIDERS: ADMIT Internal Medicine; ATTEND Internal Medicine
DX: E11.621 Type 2 diabetes mellitus with foot ulcer (principal); L03.115 Cellulitis of right lower limb; E11.628 Type 2 diabetes mellitus with other skin complications; L03.031 Cellulitis of right toe; E11.40 Type 2 diabetes mellitus with diabetic neuropathy, unspecified; E11.65 Type 2 diabetes mellitus with hyperglycemia; E78.00 Pure hypercholesterolemia, unspecified; I10 Essential (primary) hypertension; J44.9 Chronic obstructive pulmonary disease, unspecified; L97.519 Non-pressure chronic ulcer of other part of right foot with unspecified severity; M81.0 Age-related osteoporosis without current pathological fracture; Z86.010 Personal history of colon polyps; Z87.01 Personal history of pneumonia (recurrent); F17.210 Nicotine dependence, cigarettes, uncomplicated

== ENCOUNTER 2018-03-06 18:44 | Emergency (ER) | payer MEDICARE, MEDICAID ==
[2018-03-06 18:45] VITALS: BMI 28.0
[2018-03-06 18:56] VITALS: RESP 18; O2SAT 100
--- NOTE | 2018-03-06 19:23 | C.PDOC ---
History Of Present Illness 62 y/o female presents to ED for complaints of bleeding from PICC line on her right arm that began 2 days ago. Patient states she tried to stop the bleeding by applying pressure. Patient states the bleeding was active which prompted the ER visit. Denies any other physical complaints. Time Seen by Provider: 03/06/18 19:23 Chief Complaint (Nursing): Abnormal Skin Integrity History Per: Patient History/Exam Limitations: no limitations Onset/Duration Of Symptoms: Days (2) Current Symptoms Are (Timing): Still Present Location Of Injury: Right: Arm Quality Of Symptoms: denies: Painful, Itching Severity: Moderate Pain Scale Rating Of: 4 Recent travel outside of the [place]: No Past Medical History Reviewed: Historical Data, Nursing Documentation, Vital Signs Vital Signs: Last Vital Signs Temp 98.5 F 03/06/18 18:54 Pulse 82 03/06/18 18:54 Resp 18 03/06/18 18:54 BP 183/73 H 03/06/18 18:54 Pulse Ox 100 03/06/18 19:47 - Medical History PMH: Anemia, Anxiety, Arthritis, Asthma, Bronchitis, Colonic Polyps, COPD, Depression, Diabetes, Gastritis, Gall Bladder Disease, HTN, Hypercholesterolemia , Pancreatitis, Pneumonia Surgical History: Cholecystectomy, Endoscopy, Tonsillectomy - [facility] Procedures CENTRAL VENOUS CATHETER PLACEMENT WITH GUIDANCE (12/19/14) CLOSED ENDOSCOPIC BIOPSY OF LARGE INTESTINE (08/02/14) COLONOSCOPY (08/02/14) ENDOSC POLYPECTOMY OF LG INTEST (03/21/15) ESOPHAGOGASTRODUODENOSCOPY [EGD] W/CLOSED BIOPSY (03/21/15) TETANUS TOXOID ADMINIST (09/21/14) TOE AMPUTATION (01/16/15) Family History: States: Unknown Family Hx - Social History Hx Tobacco Use: Yes Hx Alcohol Use: No Hx Substance Use: No - Immunization History Hx Tetanus Toxoid Vaccination: (unk) Hx Influenza Vaccination: No Hx Pneumococcal Vaccination: (unk) Review Of Systems Constitutional: Negative for: Fever, Chills Gastrointestinal: Negative for: Nausea, Vomiting, Abdominal Pain, Diarrhea Skin: Positive for: Other (Bleeding from PICC line on right arm ). Negative for : Rash Neurological: Negative for: Weakness, Numbness Physical Exam - Physical Exam Appears: Non-toxic, No Acute Distress, Other (No obvious active bleeding ) Skin: Warm, Dry Head: Normacephalic Eye(s): bilateral: Normal Inspection Oral Mucosa: Moist Neck: Trachea Midline, Supple Chest: Symmetrical Cardiovascular: Rhythm Regular Respiratory: No Rales, No Rhonchi, No Wheezing Gastrointestinal/Abdominal: Soft, No Tenderness Extremity: Normal ROM, No Tenderness, Capillary Refill (less than 2 seconds), No Swelling Extremity: Bilateral: Atraumatic, Normal Color And Temperature, Normal ROM Pulses: Right Radial: Normal Neurological/Psych: Oriented x3, Normal Speech, Normal Motor, Normal Sensation, Normal Reflexes Gait: Steady ED Course And Treatment O2 Sat by Pulse Oximetry: 100 (RA) Pulse Ox Interpretation: Normal Disposition Counseled Patient/Family Regarding: Studies Performed, Diagnosis, Need For Followup - Disposition Referrals: Cary Bergeron MD [Staff Provider] - Disposition: HOME/ ROUTINE Disposition Time: 19:23 Condition: FAIR Additional Instructions: Please return if symptoms recur Instructions: Wound Care (DC) Forms: [facility] (Faroese) - Clinical Impression Clinical Impression: Visit for wound check, Bleeding from PICC line - Scribe Statement The provider has reviewed the documentation as recorded by the Scribedgar Tolentino All medical record entries made by the Scribe were at my direction and personally dictated by me. I have reviewed the chart and agree that the record accurately reflects my personal performance of the history, physical exam, medical decision making, and the department course for this patient. I have also personally directed, reviewed, and agree with the discharge instructions and disposition.
[2018-03-06 20:15] VITALS: BP 173/73; PULSE 79; TEMP 98.7
== END 2018-03-06 20:16 | disposition home or self-care (01) ==
LOC: C.ER 18:44
DX: T82.838A Hemorrhage due to vascular prosthetic devices, implants and grafts, initial encounter (principal); Y84.9 Medical procedure, unspecified as the cause of abnormal reaction of the patient, or of later complication, without mention of misadventure at the time of the procedure